=== PATIENT | male | born 1955 | race Caucasian/White ===

== ENCOUNTER 2020-12-05 07:51 | Observation (INO) ==
[2020-12-05 08:25] LABS: Basophils # 0.1 10*3/uL (0.0-0.2); Basophils % 1.8 % (0.0-0.8); Eosinophils # 0.1 10*3/uL (0.0-0.87); Eosinophils % 1.6 % (0.00-10.9); Hemoglobin 14.1 GM/DL (14.0-18.0); Immature Granulocytes % 0.5 %; Immature Granulocytes Absolute 0.03 #; Mean Corpuscular HGB Conc 34.4 GM/DL (32-36); Mean Corpuscular Volume 104.1 FL (87-102); Mean Platelet Volume 10.6 FL (9.6-12.0); Monocytes % 8.7 % (1.7-12.7); Neutrophils % 52.4 % (38.7-73.9); Platelet Count 152 T/CUMM (130-400); Red Blood Count 3.94 MC/CUMM (3.8-5.5); Red Cell Distribution Width 13.5 % (9.3-17.3); White Blood Count 5.7 T/CUMM (4-12)
[2020-12-05 08:54] LABS: Calcium 8.5 MG/DL (8.5-10.1); Osmolality,Calculated 278.4 MOS/KG (273-304); Potassium 4.2 MMOL/L (3.5-5.1)
[2020-12-05] MEDS ORDERED: SODIUM CHLORIDE 0.9% 1,000 ML IV SCH (11:34)
[2020-12-05] MEDS ORDERED: MAGNESIUM HYDROXIDE SUSP 30 ML UDCUP PO PRN (11:34)
[2020-12-05 12:48] LABS: Albumin 3.5 G/DL (3.4-5.0); Calcium 8.2 MG/DL (8.5-10.1); Osmolality,Calculated 273.7 MOS/KG (273-304); Potassium 4.1 MMOL/L (3.5-5.1); Total Protein 7.5 G/DL (6.4-8.3)
[2020-12-05] MEDS ORDERED: LORazepam 1 MG TABLET PO PRN (17:07)
[2020-12-05] MEDS: MORPHINE 4 MG/1 ML VIAL IV PRN (20:11)
[2020-12-05] MEDS: LACTATED RINGERS 1,000 ML IV SCH (20:12)
[2020-12-06] MEDS: LACTATED RINGERS 1,000 ML IV SCH ×2 (05:37→16:30)
[2020-12-06] MEDS: THIAMINE 100 MG TABLET PO SCH (08:02)
[2020-12-06] MEDS: MULTIVITAMIN (BEROCCA) TABLET PO SCH (08:02)
[2020-12-06] MEDS: FOLIC ACID 1 MG TABLET PO SCH (08:02)
[2020-12-06] MEDS ORDERED: ROPIVACAINE 0.5% 30 ML VIAL ONE (08:17)
[2020-12-06] MEDS ORDERED: LIDOCAINE 1% 5 ML VIAL ONE (08:17)
[2020-12-06] MEDS ORDERED: fentaNYL 100 MCG/2 ML VIAL ONE ×2 (08:25→09:26)
[2020-12-06] MEDS ORDERED: MIDAZOLAM 2 MG/2 ML VIAL ONE ×2 (08:25→08:42)
[2020-12-06] MEDS ORDERED: BACITRACIN OINT 0.9 GM PACK TOP ONE (08:28)
[2020-12-06] MEDS ORDERED: FAMOTIDINE 20 MG/2 ML VIAL IV ONE (09:04)
[2020-12-06] MEDS ORDERED: ROCURONIUM 50 MG/5 ML VIAL IV ONE (09:32)
[2020-12-06] MEDS ORDERED: SUCCINYLCHOLINE 200 MG/10 ML VIAL ONE (09:32)
[2020-12-06] MEDS ORDERED: DEXAMETHASONE 4 MG/1 ML VIAL ONE (09:32)
[2020-12-06] MEDS ORDERED: propofoL 200 MG/20 ML VIAL IV ONE ×2 (09:32→11:55)
[2020-12-06] MEDS ORDERED: ONDANSETRON 4 MG/2 ML VIAL ONE (09:32)
[2020-12-06] MEDS ORDERED: ceFAZolin 1,000 MG VIAL ONE (11:27)
[2020-12-06] MEDS ORDERED: PHENYLEPHRINE 1 MG/10 ML SYRINGE IV ONE (12:03)
[2020-12-06] MEDS ORDERED: PHENYLEPHRINE 10 MG/1 ML VIAL IV ONE (12:04)
[2020-12-06] MEDS ORDERED: SUGAMMADEX 200 MG/2 ML VIAL IV ONE (12:20)
[2020-12-06] MEDS ORDERED: ONDANSETRON 4 MG/2 ML VIAL IV PRN (12:40)
[2020-12-06] MEDS ORDERED: MAGNESIUM HYDROXIDE SUSP 30 ML UDCUP PO PRN (12:40)
[2020-12-06] MEDS ORDERED: hydrALAZINE 20 MG/1 ML VIAL IV ONE (13:15)
[2020-12-06] MEDS ORDERED: LORazepam 2 MG/1 ML VIAL IV STA (13:15)
[2020-12-06] MEDS ORDERED: LORazepam 2 MG/1 ML VIAL ONE (13:18)
[2020-12-06] MEDS ORDERED: hydrALAZINE 20 MG/1 ML VIAL ONE (13:18)
[2020-12-06] MEDS ORDERED: LORazepam 2 MG/1 ML VIAL IV PRN (14:29)
[2020-12-06] MEDS ORDERED: ZIPRASIDONE 20 MG/1 ML VIAL IM PRN (14:29)
[2020-12-06] MEDS ORDERED: ceFAZolin 1,000 MG in SYRINGE 1 EACH IV ONE (17:05)
[2020-12-06] MEDS: ceFAZolin 1,000 MG in SYRINGE 1 EACH IV SCH (17:37)
[2020-12-07] MEDS: ceFAZolin 1,000 MG in SYRINGE 1 EACH IV SCH (02:49)
[2020-12-07] MEDS: MORPHINE 4 MG/1 ML VIAL IV PRN ×2 (04:02→06:54)
[2020-12-07 05:53] LABS: Basophils % 0.6 % (0.0-0.8); Eosinophils % 0.2 % (0.00-10.9); Hematocrit 28.4 VOL% (42.0-52.0); Immature Granulocytes % 0.4 %; Immature Granulocytes Absolute 0.02 #; Lymphocytes % 18.4 % (21.2-54.2); Mean Corpuscular HGB Conc 34.9 GM/DL (32-36); Mean Corpuscular Volume 104.4 FL (87-102); Mean Platelet Volume 11.4 FL (9.6-12.0); Monocytes % 9.9 % (1.7-12.7); NRBC # 0.02 10*3/uL; Neutrophils % 70.5 % (38.7-73.9); Red Cell Distribution Width 13.4 % (9.3-17.3); White Blood Count 5.2 T/CUMM (4-12)
[2020-12-07 06:02] LABS: Hemoglobin 9.9 GM/DL (14.0-18.0); Platelet Count 83 T/CUMM (130-400); Red Blood Count 2.72 MC/CUMM (3.8-5.5)
[2020-12-07 06:07] LABS: Calcium 8.4 MG/DL (8.5-10.1); Osmolality,Calculated 271.8 MOS/KG (273-304); Potassium 3.7 MMOL/L (3.5-5.1)
[2020-12-07 06:12] LABS: Anisocytosis 1+; Platelet Estimate Decreased
[2020-12-07 06:13] LABS: Target Cells Few
[2020-12-07 06:26] LABS: Hypochromasia Slight; Macrocytosis Slight
[2020-12-07] MEDS: MULTIVITAMIN (BEROCCA) TABLET PO SCH (09:49)
[2020-12-07] MEDS: FOLIC ACID 1 MG TABLET PO SCH (09:50)
[2020-12-07] MEDS: THIAMINE 100 MG TABLET PO SCH (09:50)
[2020-12-07 11:12] VITALS: BP 155/87
== END 2020-12-07 13:36 | disposition home or self-care (01) ==
LOC: EDBD → EDUNIT# → N.ED 07:51 → N.EDINP 07:51 → N.3E 11:34
PROVIDERS: ADMIT Orthopaedic Surgery; ATTEND Orthopaedic Surgery

== ENCOUNTER 2021-02-21 23:44 | Inpatient (IN) ==
[2021-02-22] MEDS ORDERED: THIAMINE 200 MG/2 ML VIAL IV STA (00:16)
[2021-02-22 00:28] LABS: Basophils % 0.2 % (0.0-0.8); Hematocrit 34.5 VOL% (42.0-52.0); Hemoglobin 11.3 GM/DL (14.0-18.0); Immature Granulocytes % 0.6 %; Immature Granulocytes Absolute 0.05 #; Lymphocytes # 0.8 10*3/uL (1.4-4.0); Lymphocytes % 8.4 % (21.2-54.2); Mean Corpuscular HGB Conc 32.8 GM/DL (32-36); Mean Corpuscular Volume 96.9 FL (87-102); Mean Platelet Volume 11.7 FL (9.6-12.0); Monocytes % 4.8 % (1.7-12.7); NRBC # 0.05 10*3/uL; Platelet Count 316 T/CUMM (130-400); Red Blood Count 3.56 MC/CUMM (3.8-5.5); Red Cell Distribution Width 15.8 % (9.3-17.3); White Blood Count 8.9 T/CUMM (4-12)
[2021-02-22] MEDS ORDERED: SODIUM CHLORIDE 0.9% 1,000 ML IV STA (00:28)
[2021-02-22 00:44] LABS: INR 1.7; PT Patient Result 17.7 SECS (9.8-11.9)
[2021-02-22 00:47] LABS: Barbiturates Screen,Urine Negative (Negative); Benzodiazepines Screen,Urine Negative (Negative); Cannabinoid Screen,Urine Positive (Negative); Opiate Screen,Urine Negative (Negative); Phencyclidine Screen,Urine Negative (Negative)
[2021-02-22 00:51] LABS: Amorphous Crystals,Urine Occasional /HPF (Few); Blood, Urine Negative (Negative); Glucose,Urine (UA) Negative (Negative); Hyaline Casts,Urine 21 /LPF (0-3); Ketones,Urine 5 mg/dL (Negative); Mucus,Urine Many /LPF (Occasional); Nitrite,Urine Negative (Negative); Protein,Urine 30 MG/DL; RBC,Urine 2 /HPF (0-4); Urine Appearance CLEAR (Clear); Urine Color Amber (Yellow); Urine Specific Gravity 1.027 (1.001-1.035); WBC,Urine 4 /HPF (0-6)
[2021-02-22 00:53] LABS: Bilirubin,Urine Small mg/dL (Negative)
[2021-02-22 00:54] LABS: Alanine Aminotransferase 86 U/L (16-61); Albumin 3.5 G/DL (3.4-5.0); Alkaline Phosphatase 119 U/L (45-117); Aspartate Amino Transferase 145 U/L (0-37); Blood Urea Nitrogen 38 MG/DL (7-18); Calcium 9.2 MG/DL (8.5-10.1); Carbon Dioxide 22 MMOL/L (21-32); Estimated Glom Filtration Rate 66 ML/MIN; Glucose 132 MG/DL (74-106); Osmolality,Calculated 291.3 MOS/KG (273-304); Potassium 3.3 MMOL/L (3.5-5.1); Sodium 141 MMOL/L (136-145); Total Protein 7.7 G/DL (6.4-8.2)
[2021-02-22] MEDS ORDERED: ONDANSETRON 4 MG/2 ML VIAL IV PRN (01:19)
[2021-02-22] MEDS ORDERED: GLUCAGON 1 MG VIAL IM PRN (01:19)
[2021-02-22] MEDS ORDERED: DEXTROSE 50% 25 GM/50 ML VIAL IV PRN (01:19)
[2021-02-22] MEDS ORDERED: LORazepam 2 MG/1 ML VIAL IV PRN (01:22)
[2021-02-22] MEDS ORDERED: INFLUENZA VIRUS VACCINE 0.5 ML SYRINGE IM ONE (03:25)
[2021-02-22] MEDS: SODIUM CHLORIDE 0.9% 1,000 ML IV SCH ×4 (03:33→21:01)
[2021-02-22] MEDS: ENOXAPARIN 40 MG/0.4 ML SYRINGE SUBCUT SCH (03:35)
[2021-02-22] MEDS: MAGNESIUM SULF RIDER 2 GM in PREMIX 1 EACH IV PRN (04:22)
[2021-02-22 08:54] LABS: Albumin 2.7 G/DL (3.4-5.0); Bilirubin,Total 1.4 MG/DL (0.2-1.0); Calcium 8.7 MG/DL (8.5-10.1); Potassium 3.2 MMOL/L (3.5-5.1); Total Protein 6.7 G/DL (6.4-8.2)
[2021-02-22] MEDS: PANTOPRAZOLE 40 MG TABLET PO SCH (09:08)
[2021-02-22] MEDS: THIAMINE 100 MG TABLET PO SCH (09:08)
[2021-02-22] MEDS: MULTIVITAMIN (CENTRUM) TABLET PO SCH (09:08)
[2021-02-22] MEDS: FOLIC ACID 1 MG TABLET PO SCH (09:08)
[2021-02-22] MEDS: POTASSIUM CHLORIDE 20 MEQ TABLET PO PRN (09:08)
[2021-02-22] MEDS: chlordiazePOXIDE 25 MG CAPSULE PO SCH ×4 (10:15→21:00)
[2021-02-23] MEDS: ENOXAPARIN 40 MG/0.4 ML SYRINGE SUBCUT SCH (01:34)
[2021-02-23] MEDS: SODIUM CHLORIDE 0.9% 1,000 ML IV SCH ×4 (05:05→21:40)
[2021-02-23 05:30] LABS: Eosinophils # 0.1 10*3/uL (0.0-0.87); Eosinophils % 1.2 % (0.00-10.9); Hematocrit 27.6 VOL% (42.0-52.0); Immature Granulocytes % 0.7 %; Immature Granulocytes Absolute 0.03 #; Lymphocytes # 1.1 10*3/uL (1.4-4.0); Lymphocytes % 25.8 % (21.2-54.2); Mean Corpuscular HGB Conc 32.6 GM/DL (32-36); Mean Corpuscular Volume 99.6 FL (87-102); Mean Platelet Volume 12.8 FL (9.6-12.0); Monocytes % 7.5 % (1.7-12.7); NRBC # 0.03 10*3/uL; Neutrophils % 63.8 % (38.7-73.9); Platelet Count 199 T/CUMM (130-400); Red Blood Count 2.77 MC/CUMM (3.8-5.5); White Blood Count 4.1 T/CUMM (4-12)
[2021-02-23 05:39] LABS: Calcium 8.1 MG/DL (8.5-10.1)
[2021-02-23 06:26] LABS: Lymphocytes 21 % (20-55); Segmented Neutrophils 73 % (50-85); Total Cells Counted 100
[2021-02-23 06:27] LABS: Hypochromasia 1+; Platelet Estimate Normal; Polychromasia Slight
[2021-02-23] MEDS: POTASSIUM CHLORIDE 20 MEQ TABLET PO PRN ×3 (07:43→13:36)
[2021-02-23] MEDS: THIAMINE 100 MG TABLET PO SCH (09:18)
[2021-02-23] MEDS: MULTIVITAMIN (CENTRUM) TABLET PO SCH (09:18)
[2021-02-23] MEDS: PANTOPRAZOLE 40 MG TABLET PO SCH (09:18)
[2021-02-23] MEDS: FOLIC ACID 1 MG TABLET PO SCH (09:18)
[2021-02-23] MEDS: POTASSIUM CHLORIDE 20 MEQ TABLET PO SCH (09:19)
[2021-02-23] MEDS: chlordiazePOXIDE 25 MG CAPSULE PO SCH ×4 (09:19→20:41)
[2021-02-24] MEDS: SODIUM CHLORIDE 0.9% 1,000 ML IV SCH (01:30)
[2021-02-24] MEDS: ENOXAPARIN 40 MG/0.4 ML SYRINGE SUBCUT SCH (03:17)
[2021-02-24 06:43] LABS: Basophils % 0.9 % (0.0-0.8); Eosinophils # 0.1 10*3/uL (0.0-0.87); Eosinophils % 1.7 % (0.00-10.9); Hematocrit 26.4 VOL% (42.0-52.0); Hemoglobin 8.3 GM/DL (14.0-18.0); Immature Granulocytes % 0.9 %; Immature Granulocytes Absolute 0.04 #; Lymphocytes # 1.3 10*3/uL (1.4-4.0); Lymphocytes % 30.8 % (21.2-54.2); Mean Corpuscular HGB Conc 31.4 GM/DL (32-36); Mean Corpuscular Volume 101.1 FL (87-102); Mean Platelet Volume 12.4 FL (9.6-12.0); Monocytes % 5.7 % (1.7-12.7); NRBC # 0.02 10*3/uL; Platelet Count 193 T/CUMM (130-400); Red Blood Count 2.61 MC/CUMM (3.8-5.5); Red Cell Distribution Width 15.8 % (9.3-17.3); White Blood Count 4.2 T/CUMM (4-12)
[2021-02-24 07:14] LABS: Calcium 8.2 MG/DL (8.5-10.1); Osmolality,Calculated 283.1 MOS/KG (273-304); Potassium 3.5 MMOL/L (3.5-5.1)
[2021-02-24] MEDS: MAGNESIUM SULF RIDER 2 GM in PREMIX 1 EACH IV PRN (09:03)
[2021-02-24] MEDS: MULTIVITAMIN (CENTRUM) TABLET PO SCH (09:04)
[2021-02-24] MEDS: PANTOPRAZOLE 40 MG TABLET PO SCH (09:04)
[2021-02-24] MEDS: THIAMINE 100 MG TABLET PO SCH (09:04)
[2021-02-24] MEDS: POTASSIUM CHLORIDE 20 MEQ TABLET PO SCH (09:04)
[2021-02-24] MEDS: chlordiazePOXIDE 25 MG CAPSULE PO SCH ×4 (09:04→20:33)
[2021-02-24] MEDS: FOLIC ACID 1 MG TABLET PO SCH (09:04)
[2021-02-24] MEDS: SODIUM CHLOR 0.9% KCL 20 MEQ 20 MEQ/1,000 ML BAG IV SCH ×3 (09:07→22:05)
[2021-02-24] MEDS: MAGNESIUM OXIDE 400 MG TABLET PO SCH ×2 (09:07→20:33)
[2021-02-24 10:34] LABS: Giant Platelets Few; Polychromasia Slight
[2021-02-24 10:42] LABS: Platelet Estimate Adequate
[2021-02-25] MEDS: ENOXAPARIN 40 MG/0.4 ML SYRINGE SUBCUT SCH (02:55)
[2021-02-25 05:47] LABS: Basophils % 1.1 % (0.0-0.8); Eosinophils # 0.1 10*3/uL (0.0-0.87); Eosinophils % 2.2 % (0.00-10.9); Hematocrit 28.1 VOL% (42.0-52.0); Hemoglobin 8.8 GM/DL (14.0-18.0); Immature Granulocytes % 1.1 %; Immature Granulocytes Absolute 0.04 #; Lymphocytes # 1.2 10*3/uL (1.4-4.0); Lymphocytes % 32.6 % (21.2-54.2); Mean Corpuscular HGB Conc 31.3 GM/DL (32-36); Mean Corpuscular Volume 100.7 FL (87-102); Mean Platelet Volume 12.7 FL (9.6-12.0); Monocytes % 5.8 % (1.7-12.7); Neutrophils % 57.2 % (38.7-73.9); Platelet Count 179 T/CUMM (130-400); Red Blood Count 2.79 MC/CUMM (3.8-5.5); Red Cell Distribution Width 15.8 % (9.3-17.3); White Blood Count 3.6 T/CUMM (4-12)
[2021-02-25 06:11] LABS: Calcium 8.5 MG/DL (8.5-10.1); Osmolality,Calculated 275.5 MOS/KG (273-304); Potassium 3.7 MMOL/L (3.5-5.1)
[2021-02-25 06:19] LABS: Eosinophils 2 % (0-10); Hypochromasia 1+; Lymphocytes 27 % (20-55); Segmented Neutrophils 68 % (50-85); Total Cells Counted 100
[2021-02-25 06:20] LABS: Microcytosis 1+; Ovalocytes Slight; Platelet Estimate Adequate; Polychromasia Slight
[2021-02-25] MEDS: MAGNESIUM SULF RIDER 2 GM in PREMIX 1 EACH IV PRN (08:33)
[2021-02-25] MEDS: chlordiazePOXIDE 25 MG CAPSULE PO SCH ×2 (08:34→20:47)
[2021-02-25] MEDS: MAGNESIUM OXIDE 400 MG TABLET PO SCH ×2 (08:34→20:47)
[2021-02-25] MEDS: THIAMINE 100 MG TABLET PO SCH (08:34)
[2021-02-25] MEDS: PANTOPRAZOLE 40 MG TABLET PO SCH (08:34)
[2021-02-25] MEDS: FOLIC ACID 1 MG TABLET PO SCH (08:34)
[2021-02-25] MEDS: POTASSIUM CHLORIDE 20 MEQ TABLET PO SCH (08:34)
[2021-02-25] MEDS: MULTIVITAMIN (CENTRUM) TABLET PO SCH (08:34)
[2021-02-26] MEDS: ENOXAPARIN 40 MG/0.4 ML SYRINGE SUBCUT SCH (04:17)
[2021-02-26] MEDS ORDERED: chlordiazePOXIDE 25 MG CAPSULE PO PRN (08:07)
[2021-02-26] MEDS: MULTIVITAMIN (CENTRUM) TABLET PO SCH (09:27)
[2021-02-26] MEDS: carvediloL 6.25 MG TABLET PO SCH ×2 (09:28→20:38)
[2021-02-26] MEDS: MAGNESIUM OXIDE 400 MG TABLET PO SCH ×2 (09:28→20:38)
[2021-02-26] MEDS: FOLIC ACID 1 MG TABLET PO SCH (09:28)
[2021-02-26] MEDS: PANTOPRAZOLE 40 MG TABLET PO SCH (09:28)
[2021-02-26] MEDS: POTASSIUM CHLORIDE 20 MEQ TABLET PO SCH (09:28)
[2021-02-26] MEDS: THIAMINE 100 MG TABLET PO SCH (09:28)
[2021-02-26] MEDS ORDERED: TUBERCULIN SKIN TEST 0.1 ML SYRINGE INTRADERM ONE (16:00)
[2021-02-27] MEDS: ENOXAPARIN 40 MG/0.4 ML SYRINGE SUBCUT SCH (03:05)
[2021-02-27] MEDS: MAGNESIUM SULF RIDER 2 GM in PREMIX 1 EACH IV PRN (08:55)
[2021-02-27] MEDS: FOLIC ACID 1 MG TABLET PO SCH (08:56)
[2021-02-27] MEDS: MAGNESIUM OXIDE 400 MG TABLET PO SCH ×2 (08:56→20:34)
[2021-02-27] MEDS: POTASSIUM CHLORIDE 20 MEQ TABLET PO SCH (08:56)
[2021-02-27] MEDS: carvediloL 6.25 MG TABLET PO SCH (08:56)
[2021-02-27] MEDS: MULTIVITAMIN (CENTRUM) TABLET PO SCH (08:56)
[2021-02-27] MEDS: THIAMINE 100 MG TABLET PO SCH (08:57)
[2021-02-27] MEDS: PANTOPRAZOLE 40 MG TABLET PO SCH (08:57)
[2021-02-28] MEDS: ENOXAPARIN 40 MG/0.4 ML SYRINGE SUBCUT SCH (03:50)
[2021-02-28 06:42] LABS: Calcium 8.3 MG/DL (8.5-10.1); Osmolality,Calculated 278.5 MOS/KG (273-304)
[2021-02-28] MEDS: MULTIVITAMIN (CENTRUM) TABLET PO SCH (08:40)
[2021-02-28] MEDS: THIAMINE 100 MG TABLET PO SCH (08:41)
[2021-02-28] MEDS: POTASSIUM CHLORIDE 20 MEQ TABLET PO SCH (08:41)
[2021-02-28] MEDS: PANTOPRAZOLE 40 MG TABLET PO SCH (08:41)
[2021-02-28] MEDS: MAGNESIUM OXIDE 400 MG TABLET PO SCH ×2 (08:41→20:32)
[2021-02-28] MEDS: FOLIC ACID 1 MG TABLET PO SCH (08:41)
[2021-03-01] MEDS: ENOXAPARIN 40 MG/0.4 ML SYRINGE SUBCUT SCH (04:00)
[2021-03-01] MEDS: THIAMINE 100 MG TABLET PO SCH (08:53)
[2021-03-01] MEDS: POTASSIUM CHLORIDE 20 MEQ TABLET PO SCH (08:53)
[2021-03-01] MEDS: MAGNESIUM OXIDE 400 MG TABLET PO SCH ×2 (08:53→22:08)
[2021-03-01] MEDS: PANTOPRAZOLE 40 MG TABLET PO SCH (08:53)
[2021-03-01 08:54] LABS: Basophils % 0.5 % (0.0-0.8); Eosinophils # 0.1 10*3/uL (0.0-0.87); Eosinophils % 1.4 % (0.00-10.9); Hematocrit 31.6 VOL% (42.0-52.0); Hemoglobin 10.2 GM/DL (14.0-18.0); Immature Granulocytes % 0.3 %; Immature Granulocytes Absolute 0.02 #; Lymphocytes # 0.9 10*3/uL (1.4-4.0); Lymphocytes % 13.9 % (21.2-54.2); Mean Corpuscular HGB Conc 32.3 GM/DL (32-36); Mean Corpuscular Volume 98.1 FL (87-102); Mean Platelet Volume 12.5 FL (9.6-12.0); Monocytes % 7.8 % (1.7-12.7); Neutrophils % 76.1 % (38.7-73.9); Platelet Count 196 T/CUMM (130-400); Red Blood Count 3.22 MC/CUMM (3.8-5.5); Red Cell Distribution Width 16.8 % (9.3-17.3); White Blood Count 6.3 T/CUMM (4-12)
[2021-03-01] MEDS: MULTIVITAMIN (CENTRUM) TABLET PO SCH (08:54)
[2021-03-01] MEDS: FOLIC ACID 1 MG TABLET PO SCH (08:54)
[2021-03-01 09:15] LABS: Albumin 2.4 G/DL (3.4-5.0); Bilirubin,Total 0.6 MG/DL (0.2-1.0); Osmolality,Calculated 266.4 MOS/KG (273-304); Potassium 4.1 MMOL/L (3.5-5.1); Total Protein 6.4 G/DL (6.4-8.2)
[2021-03-01] MEDS: MAGNESIUM SULF RIDER 2 GM in PREMIX 1 EACH IV PRN (16:36)
[2021-03-02] MEDS: ENOXAPARIN 40 MG/0.4 ML SYRINGE SUBCUT SCH (04:44)
[2021-03-02 05:16] LABS: Basophils % 0.5 % (0.0-0.8); Eosinophils # 0.1 10*3/uL (0.0-0.87); Eosinophils % 1.3 % (0.00-10.9); Hematocrit 30.8 VOL% (42.0-52.0); Hemoglobin 9.9 GM/DL (14.0-18.0); Immature Granulocytes % 0.7 %; Immature Granulocytes Absolute 0.04 #; Lymphocytes # 0.8 10*3/uL (1.4-4.0); Lymphocytes % 13.4 % (21.2-54.2); Mean Corpuscular HGB Conc 32.1 GM/DL (32-36); Mean Corpuscular Volume 98.4 FL (87-102); Mean Platelet Volume 13.8 FL (9.6-12.0); Monocytes % 7.7 % (1.7-12.7); Neutrophils % 76.4 % (38.7-73.9); Platelet Count 203 T/CUMM (130-400); Red Blood Count 3.13 MC/CUMM (3.8-5.5); Red Cell Distribution Width 16.6 % (9.3-17.3); White Blood Count 6.1 T/CUMM (4-12)
[2021-03-02 05:26] LABS: Albumin 2.4 G/DL (3.4-5.0); Bilirubin,Total 1.3 MG/DL (0.2-1.0); Calcium 8.8 MG/DL (8.5-10.1); Potassium 4.1 MMOL/L (3.5-5.1); Total Protein 6.2 G/DL (6.4-8.2)
[2021-03-02] MEDS: FOLIC ACID 1 MG TABLET PO SCH (08:43)
[2021-03-02] MEDS: MAGNESIUM OXIDE 400 MG TABLET PO SCH ×2 (08:43→20:05)
[2021-03-02] MEDS: PANTOPRAZOLE 40 MG TABLET PO SCH (08:43)
[2021-03-02] MEDS: POTASSIUM CHLORIDE 20 MEQ TABLET PO SCH (08:43)
[2021-03-02] MEDS: MULTIVITAMIN (CENTRUM) TABLET PO SCH (08:43)
[2021-03-02] MEDS: THIAMINE 100 MG TABLET PO SCH (08:43)
[2021-03-03] MEDS: MULTIVITAMIN (CENTRUM) TABLET PO SCH (08:49)
[2021-03-03] MEDS: FOLIC ACID 1 MG TABLET PO SCH (08:49)
[2021-03-03] MEDS: POTASSIUM CHLORIDE 20 MEQ TABLET PO SCH (08:50)
[2021-03-03] MEDS: THIAMINE 100 MG TABLET PO SCH (08:50)
[2021-03-03] MEDS: MAGNESIUM OXIDE 400 MG TABLET PO SCH ×2 (08:50→20:38)
[2021-03-03] MEDS: PANTOPRAZOLE 40 MG TABLET PO SCH (08:50)
[2021-03-03] MEDS: ENOXAPARIN 40 MG/0.4 ML SYRINGE SUBCUT SCH (09:07)
[2021-03-04 05:01] LABS: Basophils % 0.6 % (0.0-0.8); Eosinophils # 0.1 10*3/uL (0.0-0.87); Eosinophils % 1.3 % (0.00-10.9); Hematocrit 28.5 VOL% (42.0-52.0); Immature Granulocytes % 0.3 %; Immature Granulocytes Absolute 0.02 #; Lymphocytes # 0.9 10*3/uL (1.4-4.0); Lymphocytes % 14.7 % (21.2-54.2); Mean Corpuscular HGB Conc 31.6 GM/DL (32-36); Mean Corpuscular Volume 98.6 FL (87-102); Monocytes % 8.3 % (1.7-12.7); Neutrophils % 74.8 % (38.7-73.9); Platelet Count 202 T/CUMM (130-400); Red Blood Count 2.89 MC/CUMM (3.8-5.5); Red Cell Distribution Width 16.4 % (9.3-17.3); White Blood Count 6.2 T/CUMM (4-12)
[2021-03-04 05:22] LABS: Calcium 8.7 MG/DL (8.5-10.1); Hypochromasia 1+; Lymphocytes 12 % (20-55); Microcytosis 1+; Osmolality,Calculated 268.5 MOS/KG (273-304); Ovalocytes Slight; Platelet Estimate Adequate; Potassium 3.6 MMOL/L (3.5-5.1); Segmented Neutrophils 80 % (50-85); Total Cells Counted 100
[2021-03-04] MEDS: POTASSIUM CHLORIDE 20 MEQ TABLET PO PRN (06:08)
[2021-03-04] MEDS: ENOXAPARIN 40 MG/0.4 ML SYRINGE SUBCUT SCH (08:26)
[2021-03-04] MEDS: MAGNESIUM OXIDE 400 MG TABLET PO SCH ×2 (08:26→20:03)
[2021-03-04] MEDS: MULTIVITAMIN (CENTRUM) TABLET PO SCH (08:26)
[2021-03-04] MEDS: POTASSIUM CHLORIDE 20 MEQ TABLET PO SCH (08:27)
[2021-03-04] MEDS: THIAMINE 100 MG TABLET PO SCH (08:27)
[2021-03-04] MEDS: PANTOPRAZOLE 40 MG TABLET PO SCH (08:27)
[2021-03-04] MEDS: FOLIC ACID 1 MG TABLET PO SCH (08:29)
[2021-03-05 05:25] LABS: Basophils # 0.1 10*3/uL (0.0-0.2); Basophils % 0.9 % (0.0-0.8); Eosinophils # 0.1 10*3/uL (0.0-0.87); Eosinophils % 1.7 % (0.00-10.9); Hematocrit 27.3 VOL% (42.0-52.0); Hemoglobin 8.8 GM/DL (14.0-18.0); Immature Granulocytes % 0.5 %; Immature Granulocytes Absolute 0.03 #; Lymphocytes # 0.9 10*3/uL (1.4-4.0); Lymphocytes % 15.4 % (21.2-54.2); Mean Corpuscular HGB Conc 32.2 GM/DL (32-36); Mean Corpuscular Volume 96.8 FL (87-102); Mean Platelet Volume 12.9 FL (9.6-12.0); Monocytes % 6.4 % (1.7-12.7); Neutrophils % 75.1 % (38.7-73.9); Platelet Count 218 T/CUMM (130-400); Red Blood Count 2.82 MC/CUMM (3.8-5.5); Red Cell Distribution Width 15.9 % (9.3-17.3); White Blood Count 5.8 T/CUMM (4-12)
[2021-03-05 05:42] LABS: Albumin 2.1 G/DL (3.4-5.0); Bilirubin,Total 0.9 MG/DL (0.2-1.0); Osmolality,Calculated 269.4 MOS/KG (273-304); Potassium 3.7 MMOL/L (3.5-5.1); Total Protein 6.2 G/DL (6.4-8.2)
[2021-03-05] MEDS: ENOXAPARIN 40 MG/0.4 ML SYRINGE SUBCUT SCH (10:14)
[2021-03-05] MEDS: MULTIVITAMIN (CENTRUM) TABLET PO SCH (10:15)
[2021-03-05] MEDS: FOLIC ACID 1 MG TABLET PO SCH (10:15)
[2021-03-05] MEDS: POTASSIUM CHLORIDE 20 MEQ TABLET PO SCH (10:16)
[2021-03-05] MEDS: PANTOPRAZOLE 40 MG TABLET PO SCH (10:16)
[2021-03-05] MEDS: THIAMINE 100 MG TABLET PO SCH (10:16)
[2021-03-05] MEDS: MAGNESIUM OXIDE 400 MG TABLET PO SCH ×2 (10:16→20:34)
[2021-03-05] MEDS: DEXTROSE 5% NACL 0.45% 1,000 ML IV SCH (16:42)
[2021-03-06] MEDS: DEXTROSE 5% NACL 0.45% 1,000 ML IV SCH ×2 (05:09→23:13)
[2021-03-06 05:51] LABS: Basophils % 0.7 % (0.0-0.8); Eosinophils # 0.1 10*3/uL (0.0-0.87); Eosinophils % 2.9 % (0.00-10.9); Hematocrit 28.3 VOL% (42.0-52.0); Hemoglobin 8.6 GM/DL (14.0-18.0); Immature Granulocytes % 0.5 %; Immature Granulocytes Absolute 0.02 #; Lymphocytes # 0.9 10*3/uL (1.4-4.0); Lymphocytes % 21.4 % (21.2-54.2); Mean Corpuscular HGB Conc 30.4 GM/DL (32-36); Mean Corpuscular Volume 101.1 FL (87-102); Mean Platelet Volume 12.8 FL (9.6-12.0); Monocytes % 6.5 % (1.7-12.7); Platelet Count 251 T/CUMM (130-400); Red Cell Distribution Width 15.9 % (9.3-17.3); White Blood Count 4.2 T/CUMM (4-12)
[2021-03-06 06:12] LABS: Calcium 8.9 MG/DL (8.5-10.1); Osmolality,Calculated 269.2 MOS/KG (273-304); Potassium 3.3 MMOL/L (3.5-5.1)
[2021-03-06 06:14] LABS: Hypochromasia 1+; Microcytosis 1+
[2021-03-06 06:15] LABS: Platelet Estimate Normal
[2021-03-06] MEDS: POTASSIUM CHLORIDE RIDER 10 MEQ in PREMIX 1 EACH IV PRN ×4 (08:39→12:22)
[2021-03-06] MEDS: MULTIVITAMIN (CENTRUM) TABLET PO SCH (09:16)
[2021-03-06] MEDS: FOLIC ACID 1 MG TABLET PO SCH (09:16)
[2021-03-06] MEDS: POTASSIUM CHLORIDE 20 MEQ TABLET PO SCH (09:17)
[2021-03-06] MEDS: PANTOPRAZOLE 40 MG TABLET PO SCH (09:17)
[2021-03-06] MEDS: MAGNESIUM OXIDE 400 MG TABLET PO SCH ×2 (09:17→20:17)
[2021-03-06] MEDS: THIAMINE 100 MG TABLET PO SCH (09:17)
[2021-03-06] MEDS: ENOXAPARIN 40 MG/0.4 ML SYRINGE SUBCUT SCH (09:42)
[2021-03-06] MEDS: THIAMINE 200 MG/2 ML VIAL IV SCH (20:18)
[2021-03-07] MEDS: THIAMINE 200 MG/2 ML VIAL IV SCH ×2 (09:58→16:53)
[2021-03-07] MEDS: ENOXAPARIN 40 MG/0.4 ML SYRINGE SUBCUT SCH (09:59)
[2021-03-07] MEDS: MAGNESIUM OXIDE 400 MG TABLET PO SCH ×2 (10:32→23:50)
[2021-03-07] MEDS: FOLIC ACID 1 MG TABLET PO SCH (10:32)
[2021-03-07] MEDS: MULTIVITAMIN (CENTRUM) TABLET PO SCH (10:32)
[2021-03-07] MEDS: POTASSIUM CHLORIDE 20 MEQ TABLET PO SCH (10:32)
[2021-03-07] MEDS: THIAMINE 100 MG TABLET PO SCH (10:33)
[2021-03-07] MEDS: PANTOPRAZOLE 40 MG TABLET PO SCH (10:33)
[2021-03-07] MEDS: DEXTROSE 5% NACL 0.45% 1,000 ML IV SCH (13:04)
[2021-03-08] MEDS: THIAMINE 200 MG/2 ML VIAL IV SCH ×4 (00:07→20:15)
[2021-03-08] MEDS: DEXTROSE 5% NACL 0.45% 1,000 ML IV SCH ×2 (02:24→17:11)
[2021-03-08 05:41] LABS: INR 1.2; PT Patient Result 12.4 SECS (9.8-11.9)
[2021-03-08 06:00] LABS: Albumin 2.1 G/DL (3.4-5.0); Bilirubin,Total 1.1 MG/DL (0.2-1.0); Calcium 8.7 MG/DL (8.5-10.1); Potassium 3.1 MMOL/L (3.5-5.1); Total Protein 6.1 G/DL (6.4-8.2)
[2021-03-08] MEDS ORDERED: LACTATED RINGERS 1,000 ML IV SCH (08:00)
[2021-03-08] MEDS ORDERED: ceFAZolin 1,000 MG in SYRINGE 1 EACH IV ONE (08:00)
[2021-03-08] MEDS: FOLIC ACID 1 MG TABLET PO SCH (09:24)
[2021-03-08] MEDS: MAGNESIUM OXIDE 400 MG TABLET PO SCH ×2 (09:24→20:16)
[2021-03-08] MEDS: POTASSIUM CHLORIDE 20 MEQ TABLET PO SCH (09:24)
[2021-03-08] MEDS: MULTIVITAMIN (CENTRUM) TABLET PO SCH (09:24)
[2021-03-08] MEDS: PANTOPRAZOLE 40 MG TABLET PO SCH (09:24)
[2021-03-08] MEDS: MAGNESIUM SULF RIDER 2 GM in PREMIX 1 EACH IV PRN (09:28)
[2021-03-08] MEDS: THIAMINE 100 MG TABLET PO SCH (09:30)
[2021-03-08] MEDS: POTASSIUM CHLORIDE RIDER 10 MEQ in PREMIX 1 EACH IV PRN ×4 (10:15→13:53)
[2021-03-09] MEDS ORDERED: ceFAZolin 1,000 MG in SYRINGE 1 EACH IV ONE (06:00)
[2021-03-09] MEDS: THIAMINE 200 MG/2 ML VIAL IV SCH ×3 (08:21→21:10)
[2021-03-09] MEDS: MAGNESIUM OXIDE 400 MG TABLET PO SCH ×2 (08:23→21:02)
[2021-03-09] MEDS: MULTIVITAMIN (CENTRUM) TABLET PO SCH (08:23)
[2021-03-09] MEDS: POTASSIUM CHLORIDE 20 MEQ TABLET PO SCH (08:23)
[2021-03-09] MEDS: FOLIC ACID 1 MG TABLET PO SCH (08:23)
[2021-03-09] MEDS: THIAMINE 100 MG TABLET PO SCH (08:24)
[2021-03-09] MEDS: PANTOPRAZOLE 40 MG TABLET PO SCH (08:24)
[2021-03-09] MEDS: POTASSIUM CHLORIDE RIDER 10 MEQ in PREMIX 1 EACH IV PRN ×4 (10:17→17:53)
[2021-03-10] MEDS: DEXTROSE 5% NACL 0.45% 1,000 ML IV SCH ×2 (00:35→21:04)
[2021-03-10 06:44] LABS: Calcium 8.3 MG/DL (8.5-10.1); Osmolality,Calculated 268.1 MOS/KG (273-304); Potassium 3.6 MMOL/L (3.5-5.1)
[2021-03-10 07:43] LABS: Basophils % 0.6 % (0.0-0.8); Eosinophils # 0.1 10*3/uL (0.0-0.87); Eosinophils % 2.6 % (0.00-10.9); Hematocrit 27.1 VOL% (42.0-52.0); Hemoglobin 8.6 GM/DL (14.0-18.0); Immature Granulocytes % 0.6 %; Immature Granulocytes Absolute 0.03 #; Lymphocytes # 0.9 10*3/uL (1.4-4.0); Lymphocytes % 18.5 % (21.2-54.2); Mean Corpuscular HGB Conc 31.7 GM/DL (32-36); Mean Corpuscular Volume 97.5 FL (87-102); Mean Platelet Volume 12.5 FL (9.6-12.0); Neutrophils % 70.7 % (38.7-73.9); Platelet Count 306 T/CUMM (130-400); Red Blood Count 2.78 MC/CUMM (3.8-5.5); Red Cell Distribution Width 15.8 % (9.3-17.3)
[2021-03-10] MEDS: PANTOPRAZOLE 40 MG TABLET PO SCH (08:03)
[2021-03-10 08:09] LABS: Anisocytosis 1+; Eosinophils 1 % (0-10); Lymphocytes 18 % (20-55); Macrocytosis 1+; Platelet Estimate Normal; Segmented Neutrophils 72 % (50-85); Total Cells Counted 100
[2021-03-10] MEDS: FOLIC ACID 1 MG TABLET PO SCH (09:53)
[2021-03-10] MEDS: POTASSIUM CHLORIDE RIDER 10 MEQ in PREMIX 1 EACH IV PRN ×2 (09:54→15:09)
[2021-03-10] MEDS: MAGNESIUM OXIDE 400 MG TABLET PO SCH ×2 (09:54→20:22)
[2021-03-10] MEDS: MULTIVITAMIN (CENTRUM) TABLET PO SCH (09:54)
[2021-03-10] MEDS: POTASSIUM CHLORIDE 20 MEQ TABLET PO SCH (11:28)
[2021-03-10] MEDS: THIAMINE 200 MG/2 ML VIAL IV SCH (11:35)
[2021-03-10] MEDS: THIAMINE 100 MG TABLET PO SCH (11:35)
[2021-03-10] MEDS: MAGNESIUM SULF RIDER 2 GM in PREMIX 1 EACH IV PRN (11:37)
[2021-03-11] MEDS: LACTATED RINGERS 1,000 ML IV SCH ×2 (07:32→07:33)
[2021-03-11] MEDS: THIAMINE 200 MG/2 ML VIAL IV SCH ×2 (07:35→09:36)
[2021-03-11] MEDS: POTASSIUM CHLORIDE 20 MEQ TABLET PO SCH (09:35)
[2021-03-11] MEDS: MULTIVITAMIN (CENTRUM) TABLET PO SCH (09:36)
[2021-03-11] MEDS: THIAMINE 100 MG TABLET PO SCH (09:36)
[2021-03-11] MEDS: MAGNESIUM OXIDE 400 MG TABLET PO SCH ×2 (09:36→21:09)
[2021-03-11] MEDS: PANTOPRAZOLE 40 MG TABLET PO SCH (09:36)
[2021-03-11] MEDS: FOLIC ACID 1 MG TABLET PO SCH (09:36)
[2021-03-11] MEDS: DEXTROSE 5% NACL 0.45% 1,000 ML IV SCH (10:11)
[2021-03-11] MEDS: risperiDONE 0.25 MG TABLET PO SCH (21:09)
[2021-03-12] MEDS: DEXTROSE 5% NACL 0.45% 1,000 ML IV SCH ×2 (00:31→15:13)
[2021-03-12 05:30] LABS: Basophils % 0.6 % (0.0-0.8); Eosinophils # 0.2 10*3/uL (0.0-0.87); Eosinophils % 2.5 % (0.00-10.9); Hematocrit 29.2 VOL% (42.0-52.0); Hemoglobin 9.4 GM/DL (14.0-18.0); Immature Granulocytes % 0.6 %; Immature Granulocytes Absolute 0.04 #; Lymphocytes # 0.9 10*3/uL (1.4-4.0); Lymphocytes % 13.9 % (21.2-54.2); Mean Corpuscular HGB Conc 32.2 GM/DL (32-36); Mean Corpuscular Volume 95.4 FL (87-102); Mean Platelet Volume 11.9 FL (9.6-12.0); Neutrophils % 76.4 % (38.7-73.9); Platelet Count 295 T/CUMM (130-400); Red Blood Count 3.06 MC/CUMM (3.8-5.5); Red Cell Distribution Width 15.9 % (9.3-17.3); White Blood Count 6.5 T/CUMM (4-12)
[2021-03-12 05:38] LABS: Calcium 8.5 MG/DL (8.5-10.1); Osmolality,Calculated 263.5 MOS/KG (273-304); Potassium 3.9 MMOL/L (3.5-5.1)
[2021-03-12 06:02] LABS: Eosinophils 5 % (0-10); Hypochromasia 1+; Lymphocytes 15 % (20-55); Microcytosis 1+; Platelet Estimate Adequate; Segmented Neutrophils 75 % (50-85); Total Cells Counted 100
[2021-03-12] MEDS: POTASSIUM CHLORIDE 20 MEQ TABLET PO SCH (09:12)
[2021-03-12] MEDS: risperiDONE 0.25 MG TABLET PO SCH ×2 (09:12→20:54)
[2021-03-12] MEDS: THIAMINE 200 MG/2 ML VIAL IV SCH (09:13)
[2021-03-12] MEDS: MAGNESIUM OXIDE 400 MG TABLET PO SCH ×2 (09:13→20:53)
[2021-03-12] MEDS: PANTOPRAZOLE 40 MG TABLET PO SCH (09:13)
[2021-03-12] MEDS: FOLIC ACID 1 MG TABLET PO SCH (09:13)
[2021-03-12] MEDS: MULTIVITAMIN (CENTRUM) TABLET PO SCH (09:13)
[2021-03-13] MEDS: DEXTROSE 5% NACL 0.45% 1,000 ML IV SCH (04:17)
[2021-03-13 04:21] LABS: PT Patient Result 10.7 SECS (9.8-11.9)
[2021-03-13 04:24] LABS: Calcium 8.6 MG/DL (8.5-10.1); Osmolality,Calculated 269.1 MOS/KG (273-304); Potassium 3.8 MMOL/L (3.5-5.1)
[2021-03-13] MEDS ORDERED: ceFAZolin 1,000 MG in SYRINGE 1 EACH IV ONE (08:00)
[2021-03-13] MEDS: MAGNESIUM OXIDE 400 MG TABLET PO SCH ×2 (09:45→20:49)
[2021-03-13] MEDS: POTASSIUM CHLORIDE 20 MEQ TABLET PO SCH (09:45)
[2021-03-13] MEDS: risperiDONE 0.25 MG TABLET PO SCH ×2 (09:45→20:49)
[2021-03-13] MEDS: PANTOPRAZOLE 40 MG TABLET PO SCH (09:45)
[2021-03-13] MEDS: FOLIC ACID 1 MG TABLET PO SCH (09:45)
[2021-03-13] MEDS: MULTIVITAMIN (CENTRUM) TABLET PO SCH (09:45)
[2021-03-13] MEDS: THIAMINE 200 MG/2 ML VIAL IV SCH (10:12)
[2021-03-13] MEDS: LACTATED RINGERS 1,000 ML IV SCH (10:33)
[2021-03-13] MEDS ORDERED: propofoL 200 MG/20 ML VIAL IV ONE (12:53)
[2021-03-13] MEDS ORDERED: LIDOCAINE 2% 5 ML VIAL ONE (12:53)
[2021-03-14] MEDS: DEXTROSE 5% NACL 0.45% 1,000 ML IV SCH ×2 (01:16→14:55)
[2021-03-14] MEDS: PANTOPRAZOLE 40 MG TABLET PO SCH (09:48)
[2021-03-14] MEDS: MULTIVITAMIN (CENTRUM) TABLET PO SCH (09:49)
[2021-03-14] MEDS: MAGNESIUM OXIDE 400 MG TABLET PO SCH ×2 (09:49→20:49)
[2021-03-14] MEDS: FOLIC ACID 1 MG TABLET PO SCH (09:52)
[2021-03-14] MEDS: risperiDONE 0.25 MG TABLET PO SCH ×2 (09:53→20:49)
[2021-03-14] MEDS: POTASSIUM CHLORIDE 20 MEQ TABLET PO SCH (09:53)
[2021-03-14] MEDS: THIAMINE 200 MG/2 ML VIAL IV SCH (09:54)
[2021-03-14] MEDS: LACTATED RINGERS 1,000 ML IV SCH (14:23)
[2021-03-15] MEDS: DEXTROSE 5% NACL 0.45% 1,000 ML IV SCH ×2 (04:15→20:58)
[2021-03-15 05:24] LABS: Basophils % 0.5 % (0.0-0.8); Eosinophils # 0.2 10*3/uL (0.0-0.87); Eosinophils % 2.5 % (0.00-10.9); Hematocrit 27.6 VOL% (42.0-52.0); Hemoglobin 8.8 GM/DL (14.0-18.0); Immature Granulocytes % 0.4 %; Immature Granulocytes Absolute 0.03 #; Lymphocytes # 1.1 10*3/uL (1.4-4.0); Lymphocytes % 14.4 % (21.2-54.2); Mean Corpuscular HGB Conc 31.9 GM/DL (32-36); Mean Corpuscular Volume 94.5 FL (87-102); Mean Platelet Volume 12.1 FL (9.6-12.0); Neutrophils % 76.2 % (38.7-73.9); Platelet Count 334 T/CUMM (130-400); Red Blood Count 2.92 MC/CUMM (3.8-5.5); Red Cell Distribution Width 15.9 % (9.3-17.3); White Blood Count 7.7 T/CUMM (4-12)
[2021-03-15 05:59] LABS: Calcium 8.2 MG/DL (8.5-10.1); Osmolality,Calculated 268.1 MOS/KG (273-304)
[2021-03-15] MEDS: MAGNESIUM OXIDE 400 MG TABLET PO SCH ×2 (08:59→20:58)
[2021-03-15] MEDS: risperiDONE 0.25 MG TABLET PO SCH ×2 (08:59→20:59)
[2021-03-15] MEDS: MULTIVITAMIN (CENTRUM) TABLET PO SCH (08:59)
[2021-03-15] MEDS: OMEPRAZOLE ODT 20 MG TABLET NG SCH (08:59)
[2021-03-15] MEDS: FOLIC ACID 1 MG TABLET PO SCH (08:59)
[2021-03-15] MEDS: POTASSIUM CHLORIDE 20 MEQ TABLET PO SCH (08:59)
[2021-03-15] MEDS ORDERED: MAGNESIUM SULF RIDER 2 GM in PREMIX 1 EACH IV ONE (10:19)
[2021-03-16] MEDS: DEXTROSE 5% NACL 0.45% 1,000 ML IV SCH (08:00)
[2021-03-16] MEDS: risperiDONE 0.25 MG TABLET PO SCH ×2 (09:20→20:27)
[2021-03-16] MEDS: FOLIC ACID 1 MG TABLET PO SCH (09:20)
[2021-03-16] MEDS: MAGNESIUM OXIDE 400 MG TABLET PO SCH ×2 (09:20→20:27)
[2021-03-16] MEDS: OMEPRAZOLE ODT 20 MG TABLET NG SCH (09:20)
[2021-03-16] MEDS: THIAMINE 100 MG TABLET PO SCH (09:20)
[2021-03-16] MEDS: MULTIVITAMIN (CENTRUM) TABLET PO SCH (09:20)
[2021-03-16] MEDS: POTASSIUM CHLORIDE 20 MEQ/15 ML UDCUP NG SCH (09:20)
[2021-03-17] MEDS: DEXTROSE 5% NACL 0.45% 1,000 ML IV SCH ×2 (02:58→10:35)
[2021-03-17] MEDS: MAGNESIUM OXIDE 400 MG TABLET PO SCH ×2 (09:27→20:48)
[2021-03-17] MEDS: THIAMINE 100 MG TABLET PO SCH (09:27)
[2021-03-17] MEDS: FOLIC ACID 1 MG TABLET PO SCH (09:27)
[2021-03-17] MEDS: MULTIVITAMIN (CENTRUM) TABLET PO SCH (09:27)
[2021-03-17] MEDS: risperiDONE 0.25 MG TABLET PO SCH ×2 (09:27→20:48)
[2021-03-17] MEDS: OMEPRAZOLE ODT 20 MG TABLET NG SCH (09:27)
[2021-03-17] MEDS: POTASSIUM CHLORIDE 20 MEQ/15 ML UDCUP NG SCH (09:28)
[2021-03-18 05:28] LABS: Basophils # 0.1 10*3/uL (0.0-0.2); Basophils % 0.7 % (0.0-0.8); Eosinophils # 0.2 10*3/uL (0.0-0.87); Eosinophils % 2.5 % (0.00-10.9); Hematocrit 30.1 VOL% (42.0-52.0); Hemoglobin 9.6 GM/DL (14.0-18.0); Immature Granulocytes % 0.6 %; Immature Granulocytes Absolute 0.04 #; Lymphocytes # 1.4 10*3/uL (1.4-4.0); Lymphocytes % 19.2 % (21.2-54.2); Mean Corpuscular HGB Conc 31.9 GM/DL (32-36); Mean Corpuscular Volume 94.4 FL (87-102); Mean Platelet Volume 11.7 FL (9.6-12.0); Monocytes % 5.8 % (1.7-12.7); Neutrophils % 71.2 % (38.7-73.9); Platelet Count 369 T/CUMM (130-400); Red Blood Count 3.19 MC/CUMM (3.8-5.5); Red Cell Distribution Width 15.7 % (9.3-17.3); White Blood Count 7.1 T/CUMM (4-12)
[2021-03-18 05:47] LABS: Calcium 8.9 MG/DL (8.5-10.1); Osmolality,Calculated 264.4 MOS/KG (273-304); Potassium 3.8 MMOL/L (3.5-5.1)
[2021-03-18 05:49] LABS: Eosinophils 3 % (0-10); Hypochromasia 1+; Lymphocytes 23 % (20-55); Microcytosis 1+; Platelet Estimate Adequate; Segmented Neutrophils 72 % (50-85); Total Cells Counted 100
[2021-03-18] MEDS: MULTIVITAMIN (CENTRUM) TABLET PO SCH (08:35)
[2021-03-18] MEDS: OMEPRAZOLE ODT 20 MG TABLET NG SCH (08:35)
[2021-03-18] MEDS: MAGNESIUM OXIDE 400 MG TABLET PO SCH ×2 (08:35→20:10)
[2021-03-18] MEDS: FOLIC ACID 1 MG TABLET PO SCH (08:35)
[2021-03-18] MEDS: risperiDONE 0.25 MG TABLET PO SCH ×2 (08:36→20:10)
[2021-03-18] MEDS: THIAMINE 100 MG TABLET PO SCH (08:36)
[2021-03-18] MEDS: POTASSIUM CHLORIDE 20 MEQ/15 ML UDCUP NG SCH (08:43)
[2021-03-19] MEDS: MAGNESIUM OXIDE 400 MG TABLET PO SCH ×2 (08:36→21:25)
[2021-03-19] MEDS: THIAMINE 100 MG TABLET PO SCH (08:36)
[2021-03-19] MEDS: FOLIC ACID 1 MG TABLET PO SCH (08:36)
[2021-03-19] MEDS: POTASSIUM CHLORIDE 20 MEQ/15 ML UDCUP NG SCH (08:36)
[2021-03-19] MEDS: OMEPRAZOLE ODT 20 MG TABLET NG SCH (08:36)
[2021-03-19] MEDS: MULTIVITAMIN (CENTRUM) TABLET PO SCH (08:36)
[2021-03-19] MEDS: risperiDONE 0.25 MG TABLET PO SCH ×2 (08:36→21:26)
[2021-03-20] MEDS: MAGNESIUM OXIDE 400 MG TABLET PO SCH ×2 (08:44→21:37)
[2021-03-20] MEDS: POTASSIUM CHLORIDE 20 MEQ/15 ML UDCUP NG SCH (08:44)
[2021-03-20] MEDS: THIAMINE 100 MG TABLET PO SCH (08:44)
[2021-03-20] MEDS: FOLIC ACID 1 MG TABLET PO SCH (08:44)
[2021-03-20] MEDS: OMEPRAZOLE ODT 20 MG TABLET NG SCH (08:44)
[2021-03-20] MEDS: MULTIVITAMIN (CENTRUM) TABLET PO SCH (08:44)
[2021-03-20] MEDS: risperiDONE 0.25 MG TABLET PO SCH ×2 (08:44→21:37)
[2021-03-20] MEDS ORDERED: LACTULOSE 20 GM/30 ML UDCUP PO PRN (10:47)
[2021-03-20] MEDS: DOCUSATE SODIUM 100 MG CAPSULE PO SCH (21:37)
[2021-03-21 05:27] LABS: Basophils # 0.1 10*3/uL (0.0-0.2); Basophils % 0.8 % (0.0-0.8); Eosinophils # 0.1 10*3/uL (0.0-0.87); Hematocrit 29.3 VOL% (42.0-52.0); Hemoglobin 9.4 GM/DL (14.0-18.0); Immature Granulocytes % 0.6 %; Immature Granulocytes Absolute 0.05 #; Lymphocytes # 1.2 10*3/uL (1.4-4.0); Lymphocytes % 14.1 % (21.2-54.2); Mean Corpuscular HGB Conc 32.1 GM/DL (32-36); Mean Corpuscular Volume 93.3 FL (87-102); Mean Platelet Volume 12.5 FL (9.6-12.0); Monocytes % 5.8 % (1.7-12.7); Neutrophils % 77.7 % (38.7-73.9); Platelet Count 333 T/CUMM (130-400); Red Blood Count 3.14 MC/CUMM (3.8-5.5); Red Cell Distribution Width 16.1 % (9.3-17.3); White Blood Count 8.7 T/CUMM (4-12)
[2021-03-21 05:35] LABS: Calcium 9.1 MG/DL (8.5-10.1); Osmolality,Calculated 259.8 MOS/KG (273-304); Potassium 3.9 MMOL/L (3.5-5.1)
[2021-03-21 05:53] LABS: Eosinophils 3 % (0-10); Hypochromasia 1+; Lymphocytes 14 % (20-55); Microcytosis 1+; Platelet Estimate Adequate; Segmented Neutrophils 78 % (50-85); Total Cells Counted 100
[2021-03-21] MEDS: MAGNESIUM OXIDE 400 MG TABLET PO SCH ×2 (09:55→22:24)
[2021-03-21] MEDS: FOLIC ACID 1 MG TABLET PO SCH (09:55)
[2021-03-21] MEDS: THIAMINE 100 MG TABLET PO SCH (09:55)
[2021-03-21] MEDS: DOCUSATE SODIUM 100 MG CAPSULE PO SCH ×2 (09:55→22:24)
[2021-03-21] MEDS: MULTIVITAMIN (CENTRUM) TABLET PO SCH (09:55)
[2021-03-21] MEDS: risperiDONE 0.25 MG TABLET PO SCH ×2 (09:55→22:24)
[2021-03-21] MEDS: POTASSIUM CHLORIDE 20 MEQ/15 ML UDCUP NG SCH (09:56)
[2021-03-21] MEDS: OMEPRAZOLE ODT 20 MG TABLET NG SCH (09:56)
[2021-03-21] MEDS ORDERED: SODIUM CHLORIDE 0.9% 500 ML IV ONE (15:29)
[2021-03-21] MEDS ORDERED: MAGNESIUM SULF RIDER 2 GM in PREMIX 1 EACH IV ONE ×2 (15:30→21:00)
[2021-03-22 05:33] LABS: Basophils % 0.5 % (0.0-0.8); Eosinophils # 0.1 10*3/uL (0.0-0.87); Eosinophils % 1.3 % (0.00-10.9); Hematocrit 26.7 VOL% (42.0-52.0); Immature Granulocytes % 0.4 %; Immature Granulocytes Absolute 0.03 #; Lymphocytes # 1.2 10*3/uL (1.4-4.0); Lymphocytes % 16.5 % (21.2-54.2); Mean Corpuscular HGB Conc 33.7 GM/DL (32-36); Mean Corpuscular Volume 90.2 FL (87-102); Mean Platelet Volume 12.3 FL (9.6-12.0); Monocytes % 5.9 % (1.7-12.7); Neutrophils % 75.4 % (38.7-73.9); Platelet Count 324 T/CUMM (130-400); Red Blood Count 2.96 MC/CUMM (3.8-5.5); Red Cell Distribution Width 15.8 % (9.3-17.3); White Blood Count 7.5 T/CUMM (4-12)
[2021-03-22 06:03] LABS: Hypochromasia 1+; Microcytosis 1+; Platelet Estimate Adequate
[2021-03-22 06:07] LABS: Calcium 8.9 MG/DL (8.5-10.1); Osmolality,Calculated 264.4 MOS/KG (273-304); Potassium 3.7 MMOL/L (3.5-5.1)
[2021-03-22] MEDS: POTASSIUM CHLORIDE 20 MEQ/15 ML UDCUP NG SCH (09:14)
[2021-03-22] MEDS: MULTIVITAMIN (CENTRUM) TABLET PO SCH (09:15)
[2021-03-22] MEDS: risperiDONE 0.25 MG TABLET PO SCH ×2 (09:15→21:25)
[2021-03-22] MEDS: THIAMINE 100 MG TABLET PO SCH (09:15)
[2021-03-22] MEDS: OMEPRAZOLE ODT 20 MG TABLET NG SCH (09:15)
[2021-03-22] MEDS: DOCUSATE SODIUM 100 MG CAPSULE PO SCH ×2 (09:15→21:25)
[2021-03-22] MEDS: MAGNESIUM OXIDE 400 MG TABLET PO SCH ×2 (09:15→21:25)
[2021-03-22] MEDS: FOLIC ACID 1 MG TABLET PO SCH (09:15)
[2021-03-23] MEDS: POTASSIUM CHLORIDE 20 MEQ/15 ML UDCUP NG SCH (09:43)
[2021-03-23] MEDS: OMEPRAZOLE ODT 20 MG TABLET NG SCH (09:44)
[2021-03-23] MEDS: DOCUSATE SODIUM 100 MG CAPSULE PO SCH ×2 (09:44→20:58)
[2021-03-23] MEDS: FOLIC ACID 1 MG TABLET PO SCH (09:44)
[2021-03-23] MEDS: MULTIVITAMIN (CENTRUM) TABLET PO SCH (09:44)
[2021-03-23] MEDS: MAGNESIUM OXIDE 400 MG TABLET PO SCH ×2 (09:44→20:58)
[2021-03-23] MEDS: THIAMINE 100 MG TABLET PO SCH (09:44)
[2021-03-23] MEDS: risperiDONE 0.25 MG TABLET PO SCH ×2 (09:44→20:58)
[2021-03-23] MEDS ORDERED: SODIUM CHLORIDE 0.9% 500 ML IV ONE (12:01)
[2021-03-24 05:20] LABS: Basophils # 0.1 10*3/uL (0.0-0.2); Basophils % 0.6 % (0.0-0.8); Eosinophils # 0.1 10*3/uL (0.0-0.87); Eosinophils % 1.6 % (0.00-10.9); Hematocrit 28.2 VOL% (42.0-52.0); Hemoglobin 9.2 GM/DL (14.0-18.0); Immature Granulocytes % 0.6 %; Immature Granulocytes Absolute 0.05 #; Lymphocytes # 1.3 10*3/uL (1.4-4.0); Lymphocytes % 15.9 % (21.2-54.2); Mean Corpuscular HGB Conc 32.6 GM/DL (32-36); Mean Corpuscular Volume 90.7 FL (87-102); Mean Platelet Volume 12.1 FL (9.6-12.0); Monocytes % 6.5 % (1.7-12.7); Neutrophils % 74.8 % (38.7-73.9); Platelet Count 344 T/CUMM (130-400); Red Blood Count 3.11 MC/CUMM (3.8-5.5); Red Cell Distribution Width 15.9 % (9.3-17.3)
[2021-03-24 05:34] LABS: Osmolality,Calculated 265.5 MOS/KG (273-304); Potassium 3.9 MMOL/L (3.5-5.1)
[2021-03-24] MEDS: MAGNESIUM SULF RIDER 4 GM in PREMIX 1 EACH IV PRN (08:48)
[2021-03-24] MEDS: OMEPRAZOLE ODT 20 MG TABLET NG SCH (08:48)
[2021-03-24] MEDS: THIAMINE 100 MG TABLET PO SCH (08:49)
[2021-03-24] MEDS: POTASSIUM CHLORIDE 20 MEQ/15 ML UDCUP NG SCH (08:49)
[2021-03-24] MEDS: risperiDONE 0.25 MG TABLET PO SCH ×2 (08:49→20:50)
[2021-03-24] MEDS: MULTIVITAMIN (CENTRUM) TABLET PO SCH (08:49)
[2021-03-24] MEDS: DOCUSATE SODIUM 100 MG CAPSULE PO SCH ×2 (08:49→20:50)
[2021-03-24] MEDS: MAGNESIUM OXIDE 400 MG TABLET PO SCH ×2 (08:49→20:50)
[2021-03-24] MEDS: FOLIC ACID 1 MG TABLET PO SCH (08:49)
[2021-03-24] MEDS ORDERED: SODIUM CHLORIDE 0.9% 250 ML IV ONE (11:04)
[2021-03-25 03:59] LABS: Basophils # 0.1 10*3/uL (0.0-0.2); Basophils % 0.6 % (0.0-0.8); Eosinophils # 0.2 10*3/uL (0.0-0.87); Eosinophils % 2.1 % (0.00-10.9); Hematocrit 29.3 VOL% (42.0-52.0); Hemoglobin 9.6 GM/DL (14.0-18.0); Immature Granulocytes % 0.5 %; Immature Granulocytes Absolute 0.04 #; Lymphocytes # 1.2 10*3/uL (1.4-4.0); Lymphocytes % 15.5 % (21.2-54.2); Mean Corpuscular HGB Conc 32.8 GM/DL (32-36); Mean Corpuscular Volume 90.2 FL (87-102); Mean Platelet Volume 12.1 FL (9.6-12.0); Monocytes % 5.9 % (1.7-12.7); Neutrophils % 75.4 % (38.7-73.9); Platelet Count 336 T/CUMM (130-400); Red Blood Count 3.25 MC/CUMM (3.8-5.5); Red Cell Distribution Width 15.8 % (9.3-17.3); White Blood Count 7.8 T/CUMM (4-12)
[2021-03-25 04:17] LABS: Calcium 8.8 MG/DL (8.5-10.1); Osmolality,Calculated 261.7 MOS/KG (273-304)
[2021-03-25] MEDS: FOLIC ACID 1 MG TABLET PO SCH (09:04)
[2021-03-25] MEDS: MAGNESIUM OXIDE 400 MG TABLET PO SCH ×2 (09:04→21:28)
[2021-03-25] MEDS: THIAMINE 100 MG TABLET PO SCH (09:04)
[2021-03-25] MEDS: MULTIVITAMIN (CENTRUM) TABLET PO SCH (09:04)
[2021-03-25] MEDS: risperiDONE 0.25 MG TABLET PO SCH ×2 (09:04→21:28)
[2021-03-25] MEDS: OMEPRAZOLE ODT 20 MG TABLET NG SCH (09:04)
[2021-03-25] MEDS: DOCUSATE SODIUM 100 MG CAPSULE PO SCH ×2 (09:04→21:28)
[2021-03-25] MEDS: POTASSIUM CHLORIDE 20 MEQ/15 ML UDCUP NG SCH (09:05)
[2021-03-25] MEDS ORDERED: LORazepam 2 MG/1 ML VIAL IV PRN (12:14)
[2021-03-25] MEDS: LORazepam 2 MG/1 ML VIAL IV PRN (12:23)
[2021-03-25] MEDS ORDERED: MAGNESIUM SULF RIDER 2 GM/50 ML PREMIX IV ONE (15:13)
[2021-03-25 15:38] LABS: % Iron Saturation 11.2 % (18-50); Ferritin 307.9 ng/ml (26-388)
[2021-03-25 15:40] LABS: Folate > 24.00 NG/ML (5.38-24.0); Vitamin B12 755 PG/ML (211-911)
[2021-03-26] MEDS: LORazepam 2 MG/1 ML VIAL IV PRN (00:50)
[2021-03-26 06:23] LABS: Basophils % 0.5 % (0.0-0.8); Eosinophils # 0.1 10*3/uL (0.0-0.87); Eosinophils % 2.1 % (0.00-10.9); Hematocrit 29.8 VOL% (42.0-52.0); Hemoglobin 9.4 GM/DL (14.0-18.0); Immature Granulocytes % 0.5 %; Immature Granulocytes Absolute 0.03 #; Lymphocytes # 1.1 10*3/uL (1.4-4.0); Lymphocytes % 16.5 % (21.2-54.2); Mean Corpuscular HGB Conc 31.5 GM/DL (32-36); Mean Corpuscular Volume 91.7 FL (87-102); Monocytes % 6.1 % (1.7-12.7); Neutrophils % 74.3 % (38.7-73.9); Platelet Count 372 T/CUMM (130-400); Red Blood Count 3.25 MC/CUMM (3.8-5.5); Red Cell Distribution Width 15.7 % (9.3-17.3); White Blood Count 6.5 T/CUMM (4-12)
[2021-03-26 06:45] LABS: Hypochromasia 1+; Microcytosis 1+; Platelet Estimate Adequate
[2021-03-26 06:50] LABS: Osmolality,Calculated 258.8 MOS/KG (273-304); Potassium 3.7 MMOL/L (3.5-5.1)
[2021-03-26] MEDS: POTASSIUM CHLORIDE 20 MEQ/15 ML UDCUP NG SCH (08:15)
[2021-03-26] MEDS: MAGNESIUM OXIDE 400 MG TABLET PO SCH ×2 (08:16→21:41)
[2021-03-26] MEDS: OMEPRAZOLE ODT 20 MG TABLET NG SCH (08:16)
[2021-03-26] MEDS: THIAMINE 100 MG TABLET PO SCH (08:16)
[2021-03-26] MEDS: MULTIVITAMIN (CENTRUM) TABLET PO SCH (08:16)
[2021-03-26] MEDS: risperiDONE 0.25 MG TABLET PO SCH ×2 (08:16→21:41)
[2021-03-26] MEDS: DOCUSATE SODIUM 100 MG CAPSULE PO SCH ×2 (08:16→21:41)
[2021-03-26] MEDS: FOLIC ACID 1 MG TABLET PO SCH (08:16)
[2021-03-26] MEDS: FERROUS SULFATE 325 MG TABLET PO SCH (21:40)
[2021-03-26] MEDS: DOCUSATE SODIUM 100 MG/10 ML UDCUP PO SCH (21:40)
[2021-03-27] MEDS: risperiDONE 0.25 MG TABLET PO SCH ×2 (09:41→21:54)
[2021-03-27] MEDS: OMEPRAZOLE ODT 20 MG TABLET NG SCH (09:41)
[2021-03-27] MEDS: DOCUSATE SODIUM 100 MG/10 ML UDCUP PO SCH ×2 (09:41→21:54)
[2021-03-27] MEDS: MAGNESIUM OXIDE 400 MG TABLET PO SCH ×2 (09:41→21:54)
[2021-03-27] MEDS: POTASSIUM CHLORIDE 20 MEQ/15 ML UDCUP NG SCH (09:41)
[2021-03-27] MEDS: THIAMINE 100 MG TABLET PO SCH (09:41)
[2021-03-27] MEDS: FERROUS SULFATE 325 MG TABLET PO SCH ×2 (09:41→21:54)
[2021-03-27] MEDS: FOLIC ACID 1 MG TABLET PO SCH (09:41)
[2021-03-27] MEDS: MULTIVITAMIN (CENTRUM) TABLET PO SCH (09:41)
[2021-03-27] MEDS: DOCUSATE SODIUM 100 MG CAPSULE PO SCH ×2 (09:41→21:54)
[2021-03-28 05:42] LABS: Osmolality,Calculated 261.7 MOS/KG (273-304); Potassium 3.9 MMOL/L (3.5-5.1)
[2021-03-28] MEDS: MULTIVITAMIN (CENTRUM) TABLET PO SCH (09:24)
[2021-03-28] MEDS: DOCUSATE SODIUM 100 MG CAPSULE PO SCH ×2 (09:25→21:55)
[2021-03-28] MEDS: OMEPRAZOLE ODT 20 MG TABLET NG SCH (09:25)
[2021-03-28] MEDS: risperiDONE 0.25 MG TABLET PO SCH ×2 (09:25→21:55)
[2021-03-28] MEDS: MAGNESIUM OXIDE 400 MG TABLET PO SCH ×2 (09:25→21:55)
[2021-03-28] MEDS: DOCUSATE SODIUM 100 MG/10 ML UDCUP PO SCH ×2 (09:25→21:54)
[2021-03-28] MEDS: POTASSIUM CHLORIDE 20 MEQ/15 ML UDCUP NG SCH (09:25)
[2021-03-28] MEDS: FOLIC ACID 1 MG TABLET PO SCH (09:25)
[2021-03-28] MEDS: FERROUS SULFATE 325 MG TABLET PO SCH ×2 (09:25→21:55)
[2021-03-28] MEDS: THIAMINE 100 MG TABLET PO SCH (09:25)
[2021-03-28] MEDS: MAGNESIUM SULF RIDER 2 GM in PREMIX 1 EACH IV PRN (17:25)
[2021-03-29] MEDS: FERROUS SULFATE 325 MG TABLET PO SCH ×2 (08:29→21:08)
[2021-03-29] MEDS: FOLIC ACID 1 MG TABLET PO SCH (08:29)
[2021-03-29] MEDS: OMEPRAZOLE ODT 20 MG TABLET NG SCH (08:29)
[2021-03-29] MEDS: risperiDONE 0.25 MG TABLET PO SCH ×2 (08:29→21:07)
[2021-03-29] MEDS: MAGNESIUM OXIDE 400 MG TABLET PO SCH ×2 (08:29→21:07)
[2021-03-29] MEDS: DOCUSATE SODIUM 100 MG/10 ML UDCUP PO SCH ×2 (08:29→21:07)
[2021-03-29] MEDS: THIAMINE 100 MG TABLET PO SCH (08:29)
[2021-03-29] MEDS: DOCUSATE SODIUM 100 MG CAPSULE PO SCH ×2 (08:30→21:07)
[2021-03-29] MEDS: POTASSIUM CHLORIDE 20 MEQ/15 ML UDCUP NG SCH (08:30)
[2021-03-29] MEDS: MULTIVITAMIN LIQUID (CENTRUM) 60 ML BOTTLE PO SCH (08:32)
[2021-03-30 06:02] LABS: Basophils # 0.1 10*3/uL (0.0-0.2); Basophils % 0.9 % (0.0-0.8); Eosinophils # 0.2 10*3/uL (0.0-0.87); Eosinophils % 2.6 % (0.00-10.9); Hematocrit 30.7 VOL% (42.0-52.0); Hemoglobin 9.7 GM/DL (14.0-18.0); Immature Granulocytes % 0.7 %; Immature Granulocytes Absolute 0.05 #; Lymphocytes # 1.3 10*3/uL (1.4-4.0); Lymphocytes % 18.5 % (21.2-54.2); Mean Corpuscular HGB Conc 31.6 GM/DL (32-36); Mean Corpuscular Volume 91.9 FL (87-102); Mean Platelet Volume 11.5 FL (9.6-12.0); Monocytes % 6.4 % (1.7-12.7); Neutrophils % 70.9 % (38.7-73.9); Platelet Count 362 T/CUMM (130-400); Red Blood Count 3.34 MC/CUMM (3.8-5.5); Red Cell Distribution Width 15.9 % (9.3-17.3)
[2021-03-30 06:24] LABS: Eosinophils 2 % (0-10); Hypochromasia 1+; Lymphocytes 19 % (20-55); Microcytosis 1+; Platelet Estimate Adequate; Segmented Neutrophils 75 % (50-85); Total Cells Counted 100
[2021-03-30 06:26] LABS: Calcium 9.5 MG/DL (8.5-10.1); Osmolality,Calculated 257.9 MOS/KG (273-304); Potassium 3.8 MMOL/L (3.5-5.1)
[2021-03-30] MEDS: POTASSIUM CHLORIDE 20 MEQ/15 ML UDCUP NG SCH (08:34)
[2021-03-30] MEDS: FOLIC ACID 1 MG TABLET PO SCH (08:34)
[2021-03-30] MEDS: risperiDONE 0.25 MG TABLET PO SCH ×2 (08:34→21:59)
[2021-03-30] MEDS: OMEPRAZOLE ODT 20 MG TABLET NG SCH (08:34)
[2021-03-30] MEDS: THIAMINE 100 MG TABLET PO SCH (08:34)
[2021-03-30] MEDS: MAGNESIUM OXIDE 400 MG TABLET PO SCH ×2 (08:34→21:59)
[2021-03-30] MEDS: FERROUS SULFATE 325 MG TABLET PO SCH ×2 (08:35→21:59)
[2021-03-30] MEDS: DOCUSATE SODIUM 100 MG CAPSULE PO SCH ×2 (08:37→21:59)
[2021-03-30] MEDS: DOCUSATE SODIUM 100 MG/10 ML UDCUP PO SCH ×2 (08:37→21:59)
[2021-03-30] MEDS: MULTIVITAMIN LIQUID (CENTRUM) 60 ML BOTTLE PO SCH (08:37)
[2021-03-30] MEDS: MAGNESIUM SULF RIDER 2 GM in PREMIX 1 EACH IV PRN (09:55)
[2021-03-30] MEDS: LORazepam 2 MG/1 ML VIAL IV PRN (17:57)
[2021-03-31] MEDS: POTASSIUM CHLORIDE 20 MEQ/15 ML UDCUP NG SCH (08:00)
[2021-03-31] MEDS: OMEPRAZOLE ODT 20 MG TABLET NG SCH (08:01)
[2021-03-31] MEDS: THIAMINE 100 MG TABLET PO SCH (08:01)
[2021-03-31] MEDS: FERROUS SULFATE 325 MG TABLET PO SCH ×2 (08:01→21:04)
[2021-03-31] MEDS: MAGNESIUM OXIDE 400 MG TABLET PO SCH ×2 (08:01→21:04)
[2021-03-31] MEDS: DOCUSATE SODIUM 100 MG CAPSULE PO SCH ×2 (08:01→21:04)
[2021-03-31] MEDS: risperiDONE 0.25 MG TABLET PO SCH ×2 (08:01→21:04)
[2021-03-31] MEDS: FOLIC ACID 1 MG TABLET PO SCH (08:01)
[2021-03-31] MEDS: DOCUSATE SODIUM 100 MG/10 ML UDCUP PO SCH ×2 (08:02→21:04)
[2021-03-31] MEDS: MULTIVITAMIN LIQUID (CENTRUM) 60 ML BOTTLE PO SCH (08:02)
[2021-04-01 05:33] LABS: Calcium 9.4 MG/DL (8.5-10.1); Osmolality,Calculated 259.9 MOS/KG (273-304); Potassium 4.2 MMOL/L (3.5-5.1)
[2021-04-01] MEDS: OMEPRAZOLE ODT 20 MG TABLET NG SCH (08:38)
[2021-04-01] MEDS: DOCUSATE SODIUM 100 MG/10 ML UDCUP PO SCH ×2 (08:38→22:26)
[2021-04-01] MEDS: DOCUSATE SODIUM 100 MG CAPSULE PO SCH ×2 (08:38→22:27)
[2021-04-01] MEDS: MAGNESIUM OXIDE 400 MG TABLET PO SCH ×2 (08:38→22:27)
[2021-04-01] MEDS: risperiDONE 0.25 MG TABLET PO SCH ×2 (08:38→22:27)
[2021-04-01] MEDS: THIAMINE 100 MG TABLET PO SCH (08:39)
[2021-04-01] MEDS: FOLIC ACID 1 MG TABLET PO SCH (08:39)
[2021-04-01] MEDS: FERROUS SULFATE 325 MG TABLET PO SCH ×2 (08:39→22:27)
[2021-04-01] MEDS: POTASSIUM CHLORIDE 20 MEQ/15 ML UDCUP NG SCH (08:39)
[2021-04-01] MEDS: MULTIVITAMIN LIQUID (CENTRUM) 60 ML BOTTLE PO SCH (09:17)
[2021-04-01] MEDS ORDERED: SODIUM CHLORIDE 0.9% 1,000 ML IV ONE (10:49)
[2021-04-01] MEDS: LORazepam 2 MG/1 ML VIAL IV PRN (11:37)
[2021-04-02] MEDS ORDERED: LORazepam 2 MG/1 ML VIAL IV PRN (00:16)
[2021-04-02] MEDS: DOCUSATE SODIUM 100 MG/10 ML UDCUP PO SCH ×2 (08:39→22:02)
[2021-04-02] MEDS: OMEPRAZOLE ODT 20 MG TABLET NG SCH (08:39)
[2021-04-02] MEDS: THIAMINE 100 MG TABLET PO SCH (08:39)
[2021-04-02] MEDS: POTASSIUM CHLORIDE 20 MEQ/15 ML UDCUP NG SCH (08:39)
[2021-04-02] MEDS: FERROUS SULFATE 325 MG TABLET PO SCH ×2 (08:39→22:01)
[2021-04-02] MEDS: MAGNESIUM OXIDE 400 MG TABLET PO SCH ×2 (08:40→22:01)
[2021-04-02] MEDS: MULTIVITAMIN LIQUID (CENTRUM) 60 ML BOTTLE PO SCH (08:40)
[2021-04-02] MEDS: FOLIC ACID 1 MG TABLET PO SCH (08:40)
[2021-04-02] MEDS: DOCUSATE SODIUM 100 MG CAPSULE PO SCH ×2 (08:40→22:02)
[2021-04-02] MEDS: risperiDONE 0.25 MG TABLET PO SCH ×2 (08:40→22:01)
[2021-04-03] MEDS: FERROUS SULFATE 325 MG TABLET PO SCH (09:50)
[2021-04-03] MEDS: FOLIC ACID 1 MG TABLET PO SCH (09:50)
[2021-04-03] MEDS: MAGNESIUM OXIDE 400 MG TABLET PO SCH (09:50)
[2021-04-03] MEDS: risperiDONE 0.25 MG TABLET PO SCH (09:50)
[2021-04-03] MEDS: THIAMINE 100 MG TABLET PO SCH (09:50)
[2021-04-03] MEDS: OMEPRAZOLE ODT 20 MG TABLET NG SCH (09:50)
[2021-04-03] MEDS: DOCUSATE SODIUM 100 MG CAPSULE PO SCH (09:50)
[2021-04-03] MEDS: POTASSIUM CHLORIDE 20 MEQ/15 ML UDCUP NG SCH (09:50)
[2021-04-03] MEDS: DOCUSATE SODIUM 100 MG/10 ML UDCUP PO SCH (09:50)
[2021-04-03] MEDS: MULTIVITAMIN LIQUID (CENTRUM) 60 ML BOTTLE PO SCH (11:01)
[2021-04-04] MEDS: risperiDONE 0.25 MG TABLET PO SCH ×3 (00:44→23:18)
[2021-04-04] MEDS: DOCUSATE SODIUM 100 MG CAPSULE PO SCH ×3 (00:44→23:18)
[2021-04-04] MEDS: MAGNESIUM OXIDE 400 MG TABLET PO SCH ×3 (00:44→23:17)
[2021-04-04] MEDS: DOCUSATE SODIUM 100 MG/10 ML UDCUP PO SCH ×3 (00:44→23:17)
[2021-04-04] MEDS: FERROUS SULFATE 325 MG TABLET PO SCH ×3 (00:44→23:18)
[2021-04-04 07:13] LABS: Basophils # 0.1 10*3/uL (0.0-0.2); Basophils % 0.7 % (0.0-0.8); Eosinophils # 0.1 10*3/uL (0.0-0.87); Eosinophils % 1.9 % (0.00-10.9); Hematocrit 29.5 VOL% (42.0-52.0); Hemoglobin 9.6 GM/DL (14.0-18.0); Immature Granulocytes % 0.3 %; Immature Granulocytes Absolute 0.02 #; Lymphocytes # 1.1 10*3/uL (1.4-4.0); Lymphocytes % 16.7 % (21.2-54.2); Mean Corpuscular HGB Conc 32.5 GM/DL (32-36); Mean Corpuscular Volume 87.5 FL (87-102); Mean Platelet Volume 12.2 FL (9.6-12.0); Monocytes % 7.4 % (1.7-12.7); Platelet Count 340 T/CUMM (130-400); Red Blood Count 3.37 MC/CUMM (3.8-5.5); Red Cell Distribution Width 15.9 % (9.3-17.3); White Blood Count 6.8 T/CUMM (4-12)
[2021-04-04 07:29] LABS: Osmolality,Calculated 262.5 MOS/KG (273-304); Potassium 4.1 MMOL/L (3.5-5.1)
[2021-04-04 07:45] LABS: Eosinophils 1 % (0-10); Hypochromasia 1+; Lymphocytes 14 % (20-55); Microcytosis 1+; Platelet Estimate Adequate; Segmented Neutrophils 80 % (50-85); Total Cells Counted 100
[2021-04-04] MEDS: THIAMINE 100 MG TABLET PO SCH (09:13)
[2021-04-04] MEDS: POTASSIUM CHLORIDE 20 MEQ/15 ML UDCUP NG SCH (09:13)
[2021-04-04] MEDS: MULTIVITAMIN LIQUID (CENTRUM) 60 ML BOTTLE PO SCH (09:13)
[2021-04-04] MEDS: FOLIC ACID 1 MG TABLET PO SCH (09:13)
[2021-04-04] MEDS: OMEPRAZOLE ODT 20 MG TABLET NG SCH (09:14)
[2021-04-05] MEDS: risperiDONE 0.25 MG TABLET PO SCH ×2 (09:38→21:53)
[2021-04-05] MEDS: FOLIC ACID 1 MG TABLET PO SCH (09:38)
[2021-04-05] MEDS: THIAMINE 100 MG TABLET PO SCH (09:38)
[2021-04-05] MEDS: OMEPRAZOLE ODT 20 MG TABLET NG SCH (09:38)
[2021-04-05] MEDS: FERROUS SULFATE 325 MG TABLET PO SCH ×2 (09:38→21:53)
[2021-04-05] MEDS: POTASSIUM CHLORIDE 20 MEQ/15 ML UDCUP NG SCH (09:38)
[2021-04-05] MEDS: MAGNESIUM OXIDE 400 MG TABLET PO SCH ×2 (09:38→21:53)
[2021-04-05] MEDS: DOCUSATE SODIUM 100 MG/10 ML UDCUP PO SCH ×2 (09:38→21:53)
[2021-04-05] MEDS: DOCUSATE SODIUM 100 MG CAPSULE PO SCH ×2 (09:39→21:53)
[2021-04-05] MEDS: MULTIVITAMIN LIQUID (CENTRUM) 60 ML BOTTLE PO SCH (09:39)
[2021-04-06] MEDS: DOCUSATE SODIUM 100 MG CAPSULE PO SCH (09:28)
[2021-04-06] MEDS: POTASSIUM CHLORIDE 20 MEQ/15 ML UDCUP NG SCH (09:28)
[2021-04-06] MEDS: MAGNESIUM OXIDE 400 MG TABLET PO SCH ×2 (09:28→21:17)
[2021-04-06] MEDS: FOLIC ACID 1 MG TABLET PO SCH (09:28)
[2021-04-06] MEDS: OMEPRAZOLE ODT 20 MG TABLET NG SCH (09:28)
[2021-04-06] MEDS: DOCUSATE SODIUM 100 MG/10 ML UDCUP PO SCH ×2 (09:28→21:17)
[2021-04-06] MEDS: THIAMINE 100 MG TABLET PO SCH (09:29)
[2021-04-06] MEDS: risperiDONE 0.25 MG TABLET PO SCH ×2 (09:29→21:18)
[2021-04-06] MEDS: FERROUS SULFATE 325 MG TABLET PO SCH ×2 (09:29→21:18)
[2021-04-06] MEDS: MULTIVITAMIN LIQUID (CENTRUM) 60 ML BOTTLE PO SCH (09:29)
[2021-04-07] MEDS: DOCUSATE SODIUM 100 MG/10 ML UDCUP PO SCH ×2 (09:53→22:06)
[2021-04-07] MEDS: POTASSIUM CHLORIDE 20 MEQ/15 ML UDCUP NG SCH (09:53)
[2021-04-07] MEDS: risperiDONE 0.25 MG TABLET PO SCH ×2 (09:53→22:06)
[2021-04-07] MEDS: FOLIC ACID 1 MG TABLET PO SCH (09:53)
[2021-04-07] MEDS: THIAMINE 100 MG TABLET PO SCH (09:53)
[2021-04-07] MEDS: MAGNESIUM OXIDE 400 MG TABLET PO SCH ×2 (09:53→22:06)
[2021-04-07] MEDS: FERROUS SULFATE 325 MG TABLET PO SCH ×2 (09:53→22:05)
[2021-04-07] MEDS: MULTIVITAMIN LIQUID (CENTRUM) 60 ML BOTTLE PO SCH (09:53)
[2021-04-07] MEDS: OMEPRAZOLE ODT 20 MG TABLET NG SCH (09:54)
[2021-04-08 06:27] LABS: Basophils # 0.1 10*3/uL (0.0-0.2); Basophils % 0.9 % (0.0-0.8); Calcium 9.5 MG/DL (8.5-10.1); Eosinophils # 0.2 10*3/uL (0.0-0.87); Eosinophils % 3.1 % (0.00-10.9); Hematocrit 37.6 VOL% (42.0-52.0); Hemoglobin 11.7 GM/DL (14.0-18.0); Immature Granulocytes % 0.6 %; Immature Granulocytes Absolute 0.04 #; Lymphocytes # 1.3 10*3/uL (1.4-4.0); Lymphocytes % 19.2 % (21.2-54.2); Mean Corpuscular HGB Conc 31.1 GM/DL (32-36); Mean Corpuscular Volume 91.3 FL (87-102); Monocytes % 9.4 % (1.7-12.7); Neutrophils % 66.8 % (38.7-73.9); Osmolality,Calculated 267.4 MOS/KG (273-304); Platelet Count 202 T/CUMM (130-400); Potassium 4.1 MMOL/L (3.5-5.1); Red Blood Count 4.12 MC/CUMM (3.8-5.5); Red Cell Distribution Width 16.1 % (9.3-17.3); White Blood Count 6.5 T/CUMM (4-12)
[2021-04-08 06:54] LABS: Hypochromasia Slight; Lymphocytes 21 % (20-55); Microcytosis Slight; Platelet Estimate Adequate; Segmented Neutrophils 75 % (50-85); Total Cells Counted 100
[2021-04-08] MEDS: MAGNESIUM OXIDE 400 MG TABLET PO SCH ×2 (10:03→21:42)
[2021-04-08] MEDS: OMEPRAZOLE ODT 20 MG TABLET NG SCH (10:04)
[2021-04-08] MEDS: FERROUS SULFATE 325 MG TABLET PO SCH ×2 (10:04→21:42)
[2021-04-08] MEDS: DOCUSATE SODIUM 100 MG/10 ML UDCUP PO SCH ×2 (10:04→21:43)
[2021-04-08] MEDS: MULTIVITAMIN LIQUID (CENTRUM) 60 ML BOTTLE PO SCH (10:04)
[2021-04-08] MEDS: POTASSIUM CHLORIDE 20 MEQ/15 ML UDCUP NG SCH (10:04)
[2021-04-08] MEDS: risperiDONE 0.25 MG TABLET PO SCH ×2 (10:04→21:42)
[2021-04-08] MEDS: THIAMINE 100 MG TABLET PO SCH (10:04)
[2021-04-08] MEDS: FOLIC ACID 1 MG TABLET PO SCH (10:04)
[2021-04-08] MEDS: MAGNESIUM SULF RIDER 2 GM in PREMIX 1 EACH IV PRN (12:32)
[2021-04-09] MEDS: risperiDONE 0.25 MG TABLET PO SCH ×2 (09:57→21:04)
[2021-04-09] MEDS: OMEPRAZOLE ODT 20 MG TABLET NG SCH (09:57)
[2021-04-09] MEDS: MULTIVITAMIN LIQUID (CENTRUM) 60 ML BOTTLE PO SCH (09:57)
[2021-04-09] MEDS: THIAMINE 100 MG TABLET PO SCH (09:57)
[2021-04-09] MEDS: POTASSIUM CHLORIDE 20 MEQ/15 ML UDCUP NG SCH (09:57)
[2021-04-09] MEDS: FOLIC ACID 1 MG TABLET PO SCH (09:57)
[2021-04-09] MEDS: DOCUSATE SODIUM 100 MG/10 ML UDCUP PO SCH ×2 (09:57→20:06)
[2021-04-09] MEDS: MAGNESIUM OXIDE 400 MG TABLET PO SCH ×2 (09:57→21:04)
[2021-04-09] MEDS: FERROUS SULFATE 325 MG TABLET PO SCH ×2 (09:57→21:04)
[2021-04-09] MEDS ORDERED: ENOXAPARIN 40 MG/0.4 ML SYRINGE SUBCUT ONE (13:00)
[2021-04-09] MEDS: LORazepam 2 MG/1 ML VIAL IV PRN (17:10)
[2021-04-10] MEDS: LORazepam 2 MG/1 ML VIAL IV PRN (02:48)
[2021-04-10] MEDS: MAGNESIUM OXIDE 400 MG TABLET PO SCH ×2 (09:43→20:37)
[2021-04-10] MEDS: THIAMINE 100 MG TABLET PO SCH (09:43)
[2021-04-10] MEDS: FERROUS SULFATE 325 MG TABLET PO SCH ×2 (09:44→20:37)
[2021-04-10] MEDS: ENOXAPARIN 40 MG/0.4 ML SYRINGE SUBCUT SCH (09:44)
[2021-04-10] MEDS: OMEPRAZOLE ODT 20 MG TABLET NG SCH (09:44)
[2021-04-10] MEDS: POTASSIUM CHLORIDE 20 MEQ/15 ML UDCUP NG SCH (09:44)
[2021-04-10] MEDS: FOLIC ACID 1 MG TABLET PO SCH (09:44)
[2021-04-10] MEDS: risperiDONE 0.25 MG TABLET PO SCH ×2 (09:44→20:37)
[2021-04-10] MEDS: DOCUSATE SODIUM 100 MG/10 ML UDCUP PO SCH ×2 (09:45→20:37)
[2021-04-10] MEDS: MULTIVITAMIN LIQUID (CENTRUM) 60 ML BOTTLE PO SCH (09:46)
[2021-04-11] MEDS: FERROUS SULFATE 325 MG TABLET PO SCH ×2 (08:55→20:47)
[2021-04-11] MEDS: DOCUSATE SODIUM 100 MG/10 ML UDCUP PO SCH ×2 (08:55→20:47)
[2021-04-11] MEDS: MAGNESIUM GLUCONATE 200 MG/ML 30 ML/BOTTLE PO SCH ×2 (08:55→20:49)
[2021-04-11] MEDS: OMEPRAZOLE ODT 20 MG TABLET NG SCH (08:55)
[2021-04-11] MEDS: risperiDONE 0.25 MG TABLET PO SCH ×2 (08:55→20:47)
[2021-04-11] MEDS: THIAMINE 100 MG TABLET PO SCH (08:55)
[2021-04-11] MEDS: FOLIC ACID 1 MG TABLET PO SCH (08:55)
[2021-04-11] MEDS: MULTIVITAMIN LIQUID (CENTRUM) 60 ML BOTTLE PO SCH (08:56)
[2021-04-11] MEDS: POTASSIUM CHLORIDE 20 MEQ/15 ML UDCUP NG SCH (08:56)
[2021-04-11] MEDS: ENOXAPARIN 40 MG/0.4 ML SYRINGE SUBCUT SCH (08:56)
[2021-04-12] MEDS: risperiDONE 0.25 MG TABLET PO SCH ×2 (09:46→21:25)
[2021-04-12] MEDS: POTASSIUM CHLORIDE 20 MEQ/15 ML UDCUP NG SCH (09:46)
[2021-04-12] MEDS: DOCUSATE SODIUM 100 MG/10 ML UDCUP PO SCH ×2 (09:46→21:26)
[2021-04-12] MEDS: THIAMINE 100 MG TABLET PO SCH (09:46)
[2021-04-12] MEDS: FERROUS SULFATE 325 MG TABLET PO SCH ×2 (09:46→21:25)
[2021-04-12] MEDS: FOLIC ACID 1 MG TABLET PO SCH (09:46)
[2021-04-12] MEDS: ENOXAPARIN 40 MG/0.4 ML SYRINGE SUBCUT SCH (09:47)
[2021-04-12] MEDS: OMEPRAZOLE ODT 20 MG TABLET NG SCH (09:47)
[2021-04-12] MEDS: MAGNESIUM GLUCONATE 200 MG/ML 30 ML/BOTTLE PO SCH ×2 (09:47→21:26)
[2021-04-12] MEDS: MULTIVITAMIN LIQUID (CENTRUM) 60 ML BOTTLE PO SCH (11:22)
[2021-04-12] MEDS: LORazepam 2 MG/1 ML VIAL IV PRN ×2 (12:49→20:44)
[2021-04-13] MEDS: DOCUSATE SODIUM 100 MG/10 ML UDCUP PO SCH ×2 (08:58→21:39)
[2021-04-13] MEDS: MAGNESIUM GLUCONATE 200 MG/ML 30 ML/BOTTLE PO SCH ×2 (08:58→21:40)
[2021-04-13] MEDS: POTASSIUM CHLORIDE 20 MEQ/15 ML UDCUP NG SCH (08:59)
[2021-04-13] MEDS: FERROUS SULFATE 325 MG TABLET PO SCH ×2 (08:59→21:39)
[2021-04-13] MEDS: ENOXAPARIN 40 MG/0.4 ML SYRINGE SUBCUT SCH (08:59)
[2021-04-13] MEDS: risperiDONE 0.25 MG TABLET PO SCH ×2 (08:59→21:40)
[2021-04-13] MEDS: FOLIC ACID 1 MG TABLET PO SCH (08:59)
[2021-04-13] MEDS: OMEPRAZOLE ODT 20 MG TABLET NG SCH (08:59)
[2021-04-13] MEDS: THIAMINE 100 MG TABLET PO SCH (08:59)
[2021-04-13] MEDS: MULTIVITAMIN LIQUID (CENTRUM) 60 ML BOTTLE PO SCH (09:04)
[2021-04-13] MEDS: LORazepam 2 MG/1 ML VIAL IV PRN ×2 (11:42→22:10)
[2021-04-14 05:45] LABS: Basophils % 0.6 % (0.0-0.8); Eosinophils # 0.1 10*3/uL (0.0-0.87); Hematocrit 31.8 VOL% (42.0-52.0); Hemoglobin 10.5 GM/DL (14.0-18.0); Immature Granulocytes % 0.5 %; Immature Granulocytes Absolute 0.03 #; Lymphocytes # 1.2 10*3/uL (1.4-4.0); Lymphocytes % 18.5 % (21.2-54.2); Mean Corpuscular Volume 86.9 FL (87-102); Mean Platelet Volume 12.2 FL (9.6-12.0); Monocytes % 8.1 % (1.7-12.7); Neutrophils % 70.3 % (38.7-73.9); Platelet Count 248 T/CUMM (130-400); Red Blood Count 3.66 MC/CUMM (3.8-5.5); Red Cell Distribution Width 16.1 % (9.3-17.3); White Blood Count 6.4 T/CUMM (4-12)
[2021-04-14 06:03] LABS: Calcium 9.4 MG/DL (8.5-10.1); Osmolality,Calculated 264.4 MOS/KG (273-304); Potassium 3.8 MMOL/L (3.5-5.1)
[2021-04-14 06:44] LABS: Hypochromasia Slight; Microcytosis Slight; Platelet Estimate Normal; Polychromasia Slight
[2021-04-14] MEDS: THIAMINE 100 MG TABLET PO SCH (08:57)
[2021-04-14] MEDS: DOCUSATE SODIUM 100 MG/10 ML UDCUP PO SCH ×2 (08:57→20:21)
[2021-04-14] MEDS: FOLIC ACID 1 MG TABLET PO SCH (08:57)
[2021-04-14] MEDS: MAGNESIUM GLUCONATE 200 MG/ML 30 ML/BOTTLE PO SCH ×2 (08:57→20:21)
[2021-04-14] MEDS: POTASSIUM CHLORIDE 20 MEQ/15 ML UDCUP NG SCH (08:57)
[2021-04-14] MEDS: risperiDONE 0.25 MG TABLET PO SCH ×2 (08:57→20:21)
[2021-04-14] MEDS: OMEPRAZOLE ODT 20 MG TABLET NG SCH (08:57)
[2021-04-14] MEDS: FERROUS SULFATE 325 MG TABLET PO SCH ×2 (08:57→20:21)
[2021-04-14] MEDS: MULTIVITAMIN LIQUID (CENTRUM) 60 ML BOTTLE PO SCH (08:58)
[2021-04-14] MEDS: ENOXAPARIN 40 MG/0.4 ML SYRINGE SUBCUT SCH (08:58)
[2021-04-14] MEDS: LORazepam 2 MG/1 ML VIAL IV PRN (20:22)
[2021-04-15] MEDS: FOLIC ACID 1 MG TABLET PO SCH (09:57)
[2021-04-15] MEDS: risperiDONE 0.25 MG TABLET PO SCH ×2 (09:57→21:15)
[2021-04-15] MEDS: ENOXAPARIN 40 MG/0.4 ML SYRINGE SUBCUT SCH (09:57)
[2021-04-15] MEDS: THIAMINE 100 MG TABLET PO SCH (09:57)
[2021-04-15] MEDS: OMEPRAZOLE ODT 20 MG TABLET NG SCH (09:57)
[2021-04-15] MEDS: FERROUS SULFATE 325 MG TABLET PO SCH ×2 (09:57→21:16)
[2021-04-15] MEDS: POTASSIUM CHLORIDE 20 MEQ/15 ML UDCUP NG SCH (09:58)
[2021-04-15] MEDS: DOCUSATE SODIUM 100 MG/10 ML UDCUP PO SCH ×2 (09:58→21:15)
[2021-04-15] MEDS: MAGNESIUM GLUCONATE 200 MG/ML 30 ML/BOTTLE PO SCH ×2 (09:58→21:16)
[2021-04-15] MEDS: MULTIVITAMIN LIQUID (CENTRUM) 60 ML BOTTLE PO SCH (09:58)
[2021-04-15] MEDS: LORazepam 2 MG/1 ML VIAL IV PRN (23:14)
[2021-04-16 06:17] LABS: Calcium 9.4 MG/DL (8.5-10.1); Osmolality,Calculated 260.7 MOS/KG (273-304)
[2021-04-16 06:18] LABS: Calcium 9.6 MG/DL (8.5-10.1); Osmolality,Calculated 262.5 MOS/KG (273-304); Potassium 4.1 MMOL/L (3.5-5.1)
[2021-04-16] MEDS: ENOXAPARIN 40 MG/0.4 ML SYRINGE SUBCUT SCH (09:22)
[2021-04-16] MEDS: MAGNESIUM GLUCONATE 200 MG/ML 30 ML/BOTTLE PO SCH ×2 (09:22→22:55)
[2021-04-16] MEDS: DOCUSATE SODIUM 100 MG/10 ML UDCUP PO SCH ×2 (09:22→22:54)
[2021-04-16] MEDS: POTASSIUM CHLORIDE 20 MEQ/15 ML UDCUP NG SCH (09:22)
[2021-04-16] MEDS: risperiDONE 0.25 MG TABLET PO SCH ×2 (09:23→22:55)
[2021-04-16] MEDS: FOLIC ACID 1 MG TABLET PO SCH (09:23)
[2021-04-16] MEDS: FERROUS SULFATE 325 MG TABLET PO SCH ×2 (09:23→22:55)
[2021-04-16] MEDS: OMEPRAZOLE ODT 20 MG TABLET NG SCH (09:23)
[2021-04-16] MEDS: THIAMINE 100 MG TABLET PO SCH (09:23)
[2021-04-16] MEDS: MAGNESIUM SULF RIDER 4 GM in PREMIX 1 EACH IV PRN (09:24)
[2021-04-16] MEDS: MULTIVITAMIN LIQUID (CENTRUM) 60 ML BOTTLE PO SCH (09:30)
[2021-04-17] MEDS: THIAMINE 100 MG TABLET PO SCH (09:20)
[2021-04-17] MEDS: FERROUS SULFATE 325 MG TABLET PO SCH ×2 (09:20→20:52)
[2021-04-17] MEDS: FOLIC ACID 1 MG TABLET PO SCH (09:20)
[2021-04-17] MEDS: OMEPRAZOLE ODT 20 MG TABLET NG SCH (09:20)
[2021-04-17] MEDS: risperiDONE 0.25 MG TABLET PO SCH ×2 (09:20→20:52)
[2021-04-17] MEDS: ENOXAPARIN 40 MG/0.4 ML SYRINGE SUBCUT SCH (09:20)
[2021-04-17] MEDS: POTASSIUM CHLORIDE 20 MEQ/15 ML UDCUP NG SCH (09:20)
[2021-04-17] MEDS: MAGNESIUM GLUCONATE 200 MG/ML 30 ML/BOTTLE PO SCH ×2 (09:21→20:53)
[2021-04-17] MEDS: DOCUSATE SODIUM 100 MG/10 ML UDCUP PO SCH ×2 (09:21→20:52)
[2021-04-18 05:26] LABS: Basophils # 0.1 10*3/uL (0.0-0.2); Basophils % 0.8 % (0.0-0.8); Eosinophils # 0.1 10*3/uL (0.0-0.87); Eosinophils % 1.6 % (0.00-10.9); Hematocrit 33.3 VOL% (42.0-52.0); Hemoglobin 10.4 GM/DL (14.0-18.0); Immature Granulocytes % 0.4 %; Immature Granulocytes Absolute 0.03 #; Lymphocytes # 1.8 10*3/uL (1.4-4.0); Mean Corpuscular HGB Conc 31.2 GM/DL (32-36); Mean Corpuscular Volume 89.3 FL (87-102); Mean Platelet Volume 12.4 FL (9.6-12.0); Monocytes % 8.5 % (1.7-12.7); Neutrophils % 66.7 % (38.7-73.9); Platelet Count 319 T/CUMM (130-400); Red Blood Count 3.73 MC/CUMM (3.8-5.5); Red Cell Distribution Width 16.1 % (9.3-17.3)
[2021-04-18 05:46] LABS: Calcium 9.4 MG/DL (8.5-10.1); Osmolality,Calculated 269.1 MOS/KG (273-304); Potassium 4.1 MMOL/L (3.5-5.1)
[2021-04-18 05:57] LABS: Eosinophils 1 % (0-10); Hypochromasia 1+; Lymphocytes 24 % (20-55); Microcytosis 1+; Platelet Estimate Adequate; Segmented Neutrophils 71 % (50-85); Total Cells Counted 100
[2021-04-18] MEDS: ENOXAPARIN 40 MG/0.4 ML SYRINGE SUBCUT SCH (09:55)
[2021-04-18] MEDS: POTASSIUM CHLORIDE 20 MEQ/15 ML UDCUP NG SCH (09:55)
[2021-04-18] MEDS: DOCUSATE SODIUM 100 MG/10 ML UDCUP PO SCH ×2 (09:55→20:35)
[2021-04-18] MEDS: FOLIC ACID 1 MG TABLET PO SCH (09:56)
[2021-04-18] MEDS: THIAMINE 100 MG TABLET PO SCH (09:56)
[2021-04-18] MEDS: OMEPRAZOLE ODT 20 MG TABLET NG SCH (09:56)
[2021-04-18] MEDS: MAGNESIUM GLUCONATE 200 MG/ML 30 ML/BOTTLE PO SCH ×2 (09:56→20:35)
[2021-04-18] MEDS: MULTIVITAMIN LIQUID (CENTRUM) 60 ML BOTTLE PO SCH (09:56)
[2021-04-18] MEDS: risperiDONE 0.25 MG TABLET PO SCH ×2 (09:56→20:35)
[2021-04-18] MEDS: FERROUS SULFATE 325 MG TABLET PO SCH ×2 (09:56→20:35)
[2021-04-18] MEDS: LORazepam 2 MG/1 ML VIAL IV PRN (20:05)
[2021-04-19] MEDS: FOLIC ACID 1 MG TABLET PO SCH (09:44)
[2021-04-19] MEDS: OMEPRAZOLE ODT 20 MG TABLET NG SCH (09:44)
[2021-04-19] MEDS: DOCUSATE SODIUM 100 MG/10 ML UDCUP PO SCH ×2 (09:44→20:34)
[2021-04-19] MEDS: risperiDONE 0.25 MG TABLET PO SCH ×2 (09:44→20:34)
[2021-04-19] MEDS: THIAMINE 100 MG TABLET PO SCH (09:44)
[2021-04-19] MEDS: FERROUS SULFATE 325 MG TABLET PO SCH ×2 (09:44→20:34)
[2021-04-19] MEDS: POTASSIUM CHLORIDE 20 MEQ/15 ML UDCUP NG SCH (09:45)
[2021-04-19] MEDS: MAGNESIUM GLUCONATE 200 MG/ML 30 ML/BOTTLE PO SCH ×2 (09:45→20:34)
[2021-04-19] MEDS: MULTIVITAMIN LIQUID (CENTRUM) 60 ML BOTTLE PO SCH (09:47)
[2021-04-19] MEDS: ENOXAPARIN 40 MG/0.4 ML SYRINGE SUBCUT SCH (09:47)
[2021-04-19] MEDS: LORazepam 2 MG/1 ML VIAL IV PRN (20:31)
[2021-04-20] MEDS: LORazepam 2 MG/1 ML VIAL IV PRN ×2 (03:46→20:08)
[2021-04-20] MEDS: DOCUSATE SODIUM 100 MG/10 ML UDCUP PO SCH ×2 (09:24→20:08)
[2021-04-20] MEDS: ENOXAPARIN 40 MG/0.4 ML SYRINGE SUBCUT SCH ×2 (09:25→19:42)
[2021-04-20] MEDS: FERROUS SULFATE 325 MG TABLET PO SCH ×2 (09:25→20:05)
[2021-04-20] MEDS: MAGNESIUM GLUCONATE 200 MG/ML 30 ML/BOTTLE PO SCH ×2 (09:25→20:08)
[2021-04-20] MEDS: FOLIC ACID 1 MG TABLET PO SCH (09:25)
[2021-04-20] MEDS: MULTIVITAMIN LIQUID (CENTRUM) 60 ML BOTTLE PO SCH (09:25)
[2021-04-20] MEDS: THIAMINE 100 MG TABLET PO SCH (09:25)
[2021-04-20] MEDS: risperiDONE 0.25 MG TABLET PO SCH ×2 (09:25→20:05)
[2021-04-20] MEDS: OMEPRAZOLE ODT 20 MG TABLET NG SCH (09:25)
[2021-04-20] MEDS: POTASSIUM CHLORIDE 20 MEQ/15 ML UDCUP NG SCH (09:25)
[2021-04-20 09:30] LABS: Basophils # 0.1 10*3/uL (0.0-0.2); Basophils % 0.9 % (0.0-0.8); Eosinophils # 0.1 10*3/uL (0.0-0.87); Eosinophils % 1.8 % (0.00-10.9); Hematocrit 35.1 VOL% (42.0-52.0); Hemoglobin 11.1 GM/DL (14.0-18.0); Immature Granulocytes % 0.4 %; Immature Granulocytes Absolute 0.02 #; Lymphocytes # 1.3 10*3/uL (1.4-4.0); Lymphocytes % 24.3 % (21.2-54.2); Mean Corpuscular HGB Conc 31.6 GM/DL (32-36); Mean Corpuscular Volume 88.2 FL (87-102); Mean Platelet Volume 12.3 FL (9.6-12.0); Monocytes % 9.2 % (1.7-12.7); Neutrophils % 63.4 % (38.7-73.9); Platelet Count 265 T/CUMM (130-400); Red Blood Count 3.98 MC/CUMM (3.8-5.5); Red Cell Distribution Width 15.9 % (9.3-17.3); White Blood Count 5.5 T/CUMM (4-12)
[2021-04-20 10:05] LABS: Eosinophils 5 % (0-10); Hypochromasia 1+; Lymphocytes 29 % (20-55); Segmented Neutrophils 63 % (50-85); Total Cells Counted 100
[2021-04-20 10:06] LABS: Microcytosis 1+; Platelet Estimate Normal
[2021-04-20 10:25] LABS: Calcium 9.5 MG/DL (8.5-10.1); Osmolality,Calculated 274.7 MOS/KG (273-304)
[2021-04-20] MEDS ORDERED: MAGNESIUM SULF RIDER 4 GM/100 ML PREMIX IV ONE (11:58)
[2021-04-20] MEDS: MAGNESIUM SULF RIDER 2 GM in PREMIX 1 EACH IV PRN (12:12)
[2021-04-21] MEDS: MAGNESIUM GLUCONATE 200 MG/ML 30 ML/BOTTLE PO SCH ×2 (10:03→21:10)
[2021-04-21] MEDS: FERROUS SULFATE 325 MG TABLET PO SCH ×2 (10:03→21:09)
[2021-04-21] MEDS: MULTIVITAMIN LIQUID (CENTRUM) 60 ML BOTTLE PO SCH (10:03)
[2021-04-21] MEDS: DOCUSATE SODIUM 100 MG/10 ML UDCUP PO SCH ×2 (10:03→21:09)
[2021-04-21] MEDS: ENOXAPARIN 40 MG/0.4 ML SYRINGE SUBCUT SCH (10:03)
[2021-04-21] MEDS: FOLIC ACID 1 MG TABLET PO SCH (10:03)
[2021-04-21] MEDS: POTASSIUM CHLORIDE 20 MEQ/15 ML UDCUP NG SCH (10:04)
[2021-04-21] MEDS: risperiDONE 0.25 MG TABLET PO SCH ×2 (10:04→21:09)
[2021-04-21] MEDS: THIAMINE 100 MG TABLET PO SCH (10:04)
[2021-04-21] MEDS: OMEPRAZOLE ODT 20 MG TABLET NG SCH (10:05)
[2021-04-22] MEDS: FOLIC ACID 1 MG TABLET PO SCH (09:37)
[2021-04-22] MEDS: THIAMINE 100 MG TABLET PO SCH (09:37)
[2021-04-22] MEDS: POTASSIUM CHLORIDE 20 MEQ/15 ML UDCUP NG SCH (09:37)
[2021-04-22] MEDS: OMEPRAZOLE ODT 20 MG TABLET NG SCH (09:37)
[2021-04-22] MEDS: MAGNESIUM GLUCONATE 200 MG/ML 30 ML/BOTTLE PO SCH ×2 (09:37→22:56)
[2021-04-22] MEDS: DOCUSATE SODIUM 100 MG/10 ML UDCUP PO SCH ×2 (09:37→22:56)
[2021-04-22] MEDS: MULTIVITAMIN LIQUID (CENTRUM) 60 ML BOTTLE PO SCH (09:37)
[2021-04-22] MEDS: risperiDONE 0.25 MG TABLET PO SCH ×2 (09:37→22:56)
[2021-04-22] MEDS: FERROUS SULFATE 325 MG TABLET PO SCH ×2 (09:37→22:56)
[2021-04-22] MEDS: ENOXAPARIN 40 MG/0.4 ML SYRINGE SUBCUT SCH ×2 (09:38→09:58)
[2021-04-23 06:13] LABS: Basophils % 0.7 % (0.0-0.8); Eosinophils # 0.2 10*3/uL (0.0-0.87); Eosinophils % 3.3 % (0.00-10.9); Hematocrit 32.6 VOL% (42.0-52.0); Hemoglobin 10.2 GM/DL (14.0-18.0); Immature Granulocytes % 0.5 %; Immature Granulocytes Absolute 0.03 #; Lymphocytes # 1.4 10*3/uL (1.4-4.0); Mean Corpuscular HGB Conc 31.3 GM/DL (32-36); Mean Corpuscular Volume 87.9 FL (87-102); Mean Platelet Volume 12.4 FL (9.6-12.0); Monocytes % 7.9 % (1.7-12.7); Neutrophils % 64.6 % (38.7-73.9); Platelet Count 277 T/CUMM (130-400); Red Blood Count 3.71 MC/CUMM (3.8-5.5); Red Cell Distribution Width 15.7 % (9.3-17.3); White Blood Count 6.1 T/CUMM (4-12)
[2021-04-23 06:36] LABS: Eosinophils 2 % (0-10); Hypochromasia 1+; Lymphocytes 25 % (20-55); Microcytosis 1+; Platelet Estimate Adequate; Segmented Neutrophils 66 % (50-85); Total Cells Counted 100
[2021-04-23 06:37] LABS: Calcium 9.3 MG/DL (8.5-10.1); Potassium 3.4 MMOL/L (3.5-5.1)
[2021-04-23] MEDS ORDERED: MAGNESIUM SULF RIDER 4 GM/100 ML PREMIX IV ONE (08:08)
[2021-04-23] MEDS: THIAMINE 100 MG TABLET PO SCH (09:14)
[2021-04-23] MEDS: FOLIC ACID 1 MG TABLET PO SCH (09:14)
[2021-04-23] MEDS: FERROUS SULFATE 325 MG TABLET PO SCH ×2 (09:14→23:20)
[2021-04-23] MEDS: risperiDONE 0.25 MG TABLET PO SCH ×2 (09:14→23:20)
[2021-04-23] MEDS: DOCUSATE SODIUM 100 MG/10 ML UDCUP PO SCH ×2 (09:14→23:20)
[2021-04-23] MEDS: MULTIVITAMIN LIQUID (CENTRUM) 60 ML BOTTLE PO SCH (09:14)
[2021-04-23] MEDS: OMEPRAZOLE ODT 20 MG TABLET NG SCH (09:14)
[2021-04-23] MEDS: POTASSIUM CHLORIDE 20 MEQ/15 ML UDCUP NG SCH (09:14)
[2021-04-23] MEDS: ENOXAPARIN 40 MG/0.4 ML SYRINGE SUBCUT SCH (09:15)
[2021-04-23] MEDS: MAGNESIUM GLUCONATE 200 MG/ML 30 ML/BOTTLE PO SCH ×2 (09:15→23:20)
[2021-04-23] MEDS: LORazepam 2 MG/1 ML VIAL IV PRN (18:28)
[2021-04-24] MEDS: LORazepam 2 MG/1 ML VIAL IV PRN (02:33)
[2021-04-24] MEDS: ENOXAPARIN 40 MG/0.4 ML SYRINGE SUBCUT SCH (09:02)
[2021-04-24] MEDS: POTASSIUM CHLORIDE 20 MEQ/15 ML UDCUP NG SCH (09:02)
[2021-04-24] MEDS: FERROUS SULFATE 325 MG TABLET PO SCH ×2 (09:03→21:55)
[2021-04-24] MEDS: MAGNESIUM GLUCONATE 200 MG/ML 30 ML/BOTTLE PO SCH ×2 (09:03→21:56)
[2021-04-24] MEDS: DOCUSATE SODIUM 100 MG/10 ML UDCUP PO SCH ×2 (09:03→21:54)
[2021-04-24] MEDS: THIAMINE 100 MG TABLET PO SCH (09:03)
[2021-04-24] MEDS: OMEPRAZOLE ODT 20 MG TABLET NG SCH (09:03)
[2021-04-24] MEDS: risperiDONE 0.25 MG TABLET PO SCH ×2 (09:03→21:55)
[2021-04-24] MEDS: FOLIC ACID 1 MG TABLET PO SCH (09:04)
[2021-04-24] MEDS: MULTIVITAMIN LIQUID (CENTRUM) 60 ML BOTTLE PO SCH (09:05)
[2021-04-25] MEDS: FOLIC ACID 1 MG TABLET PO SCH (09:07)
[2021-04-25] MEDS: risperiDONE 0.25 MG TABLET PO SCH ×2 (09:07→20:24)
[2021-04-25] MEDS: THIAMINE 100 MG TABLET PO SCH (09:07)
[2021-04-25] MEDS: FERROUS SULFATE 325 MG TABLET PO SCH ×2 (09:07→20:24)
[2021-04-25] MEDS: MAGNESIUM GLUCONATE 200 MG/ML 30 ML/BOTTLE PO SCH ×2 (09:08→21:21)
[2021-04-25] MEDS: DOCUSATE SODIUM 100 MG/10 ML UDCUP PO SCH ×2 (09:08→20:24)
[2021-04-25] MEDS: OMEPRAZOLE ODT 20 MG TABLET NG SCH (09:08)
[2021-04-25] MEDS: POTASSIUM CHLORIDE 20 MEQ/15 ML UDCUP NG SCH (09:08)
[2021-04-25] MEDS: MULTIVITAMIN LIQUID (CENTRUM) 60 ML BOTTLE PO SCH (09:08)
[2021-04-25] MEDS: ENOXAPARIN 40 MG/0.4 ML SYRINGE SUBCUT SCH (09:09)
[2021-04-26] MEDS: THIAMINE 100 MG TABLET PO SCH (08:33)
[2021-04-26] MEDS: POTASSIUM CHLORIDE 20 MEQ/15 ML UDCUP NG SCH (08:33)
[2021-04-26] MEDS: MAGNESIUM GLUCONATE 200 MG/ML 30 ML/BOTTLE PO SCH (08:34)
[2021-04-26] MEDS: FERROUS SULFATE 325 MG TABLET PO SCH (08:34)
[2021-04-26] MEDS: OMEPRAZOLE ODT 20 MG TABLET NG SCH (08:34)
[2021-04-26] MEDS: risperiDONE 0.25 MG TABLET PO SCH (08:34)
[2021-04-26] MEDS: FOLIC ACID 1 MG TABLET PO SCH (08:34)
[2021-04-26] MEDS: ENOXAPARIN 40 MG/0.4 ML SYRINGE SUBCUT SCH (08:34)
[2021-04-26] MEDS: DOCUSATE SODIUM 100 MG/10 ML UDCUP PO SCH (08:34)
[2021-04-26] MEDS: MULTIVITAMIN LIQUID (CENTRUM) 60 ML BOTTLE PO SCH (08:34)
[2021-04-26 11:36] VITALS: BP 130/82
== END 2021-04-26 14:25 | disposition home or self-care (01) | DRG 896 ==
LOC: EDBD → EDUNIT# → N.EDINP 23:44 → N.ED 23:44 → SUATTDRO 02-22 01:19 → N.EDINP 02-22 03:05 → N.4E 02-22 03:06 → SUATTDRO 02-25 15:08
PROVIDERS: ADMIT Emergency Medicine; ATTEND Internal Medicine
PROC: EGDWPEG (ICD-10-PCS; 2021-03-13 10:35)